=== PATIENT | male | born 1965 | race Caucasian/White ===

== ENCOUNTER → 2019-07-06 09:44 | Outpatient (CLI) | payer BC, SELFPAY ==
--- NOTE | 2019-07-06 09:52 | US_ITS ---
PROCEDURE: US ABDOMEN COMPLETE CLINICAL INDICATION: THADDEUS UPPER QUAD PAIN more prominent on right side COMPARISON: No exams were available for comparison FINDINGS: PANCREAS: Unremarkable. No obvious mass or abnormal fluid collection. No ductal dilatation LIVER: The liver appears grossly normal overall size, however there is a large area of somewhat irregular increased and heterogenic echogenicity right lobe measuring approximately 17.3 x 11.3 by 15.7 cm. This could be a large area of somewhat heterogenic fatty infiltration but a primary hepatic neoplasm is a consideration and suggest follow-up CT scan of the abdomen and pelvis without and with IV contrast and oral contrast for additional evaluation. RIGHT KIDNEY: The right kidney measures 11.1 x 6.1 by 7.6 cm and appears sonographically normal with no hydronephrosis. LEFT KIDNEY: Kidney measures 12.7 x 5.1 by 5.8 cm. There is a small area of increased echogenicity with acoustic shadowing beneath consistent with a renal calculus 6-8 mm in size. GALLBLADDER: The gallbladder is normal in size and a small amount of biliary sludge layering along the dependent wall but there are no definite gallstones. The common measures 0.4 cm. AORTA: No evidence of aneurysmal dilatation. SPLEEN: Unremarkable. Normal size and echogenicity ASCITES: None demonstrated. IMPRESSION: Probable hepatic mass versus unusual area of focal fatty infiltration and recommend follow-up CT scan abdomen pelvis without with IV contrast and oral contrast for additional evaluation Dictated by: Dr. Sebastián Sarabia MD 07/06/2019 11:[address] Sebastián Sarabia MD in [place] 07/06/2019 11:20
== END ==
PROVIDERS: PCP Internal Medicine; Visit Provider Internal Medicine
DX: R10.11 Right upper quadrant pain (principal); R10.12 Left upper quadrant pain
CPT/HCPCS: 76700

== ENCOUNTER → 2019-07-10 10:41 | Outpatient (CLI) | payer BC, SELFPAY ==
--- NOTE | 2019-07-10 10:46 | CT_ITS ---
PROCEDURE: CT ABDOMEN PELVIS WO/W CON CLINICAL INDICATION: RT HEPATIC LESION Abnormal ultrasound showing right upper quadrant mass COMPARISON: US ABDOMEN COMPLETE from 07/06/2019 TECHNIQUE: IV Contrast: 75ML OPTIRAY 350 Oral Contrast 450ml Redicat Axial images obtained with sagittal and coronal reformats. All CT scans at the facility use one or more dose reduction, viz: automated exposure control, ma/kV adjustment per patient size (including targeted exams where dose is matched to indication, i.e. head), or iterative reconstruction technique. FINDINGS: There are mild atelectatic or fibrotic changes in the left lung base. There is a large mostly fatty right suprarenal mass. This measures 18 cm cephalad caudad, up to 11 cm transverse, and 11 cm AP. This is mostly a fatty mass. This contains some minimal peripheral calcification and does not demonstrate any significant contrast enhancement. There is some soft tissue density within the lesion also not well-defined having a more hazy appearance in the upper aspect of the mass and also cyst in the mid aspect of the mass. This does not demonstrate any contrast enhancement. This does cause indentation upon the posterior aspect of the right hepatic lobe and causes depression of the right kidney. This is felt to be adrenal in origin and is consistent with a large angio myelolipoma. This lesion is felt to arise from the posterior aspect of the right adrenal gland The left kidney and left adrenal gland are unremarkable. No intestinal obstruction or free air. The right kidney is depressed inferiorly and somewhat malrotated with minimal ectasia of the right renal collecting system. Unremarkable appendix. No pelvic mass abnormal fluid collection or focal inflammatory change of the pelvis. No acute bony anomalies. Status post left hip replacement. Degenerative disc disease L4-5. IMPRESSION: Large mostly fatty containing right upper retroperitoneal mass as described above mostly containing fat but with some some nonenhancing soft tissue density with a small focus of calcification. This is consistent with a large adrenal myelolipoma. The differential diagnosis would include retroperitoneal liposarcoma, fat containing adrenal cortical carcinoma, or adrenal teratoma. Suggest surgical consult. Hemorrhage is more likely in and adrenal myelolipoma that is greater than 4 cm in size. Dictated by: Justin Garrison MD 07/11/2019 09:41 Electronically signed by Justin Garrison MD in [place] 07/11/2019 09:41
== END ==
PROVIDERS: PCP Internal Medicine; Visit Provider Internal Medicine
DX: K76.9 Liver disease, unspecified (principal)
CPT/HCPCS: 74178; Q9967

== ENCOUNTER → 2019-07-17 07:29 | Outpatient (CLI) | payer BC, SELFPAY ==
[2019-07-21 18:19] LABS: Renin Activity, Plasma 0.693 ng/mL/hr (0.167-5.380)
== END ==
PROVIDERS: Visit Provider Internal Medicine
DX: E27.9 Disorder of adrenal gland, unspecified (principal)
CPT/HCPCS: 36415; 82088; 82533; 84244

== ENCOUNTER → 2019-09-18 07:45 | Outpatient (CLI) | payer BC, SELFPAY ==
--- NOTE | 2019-09-18 07:47 | US_ITS ---
PROCEDURE: US ABDOMEN COMPLETE CLINICAL INDICATION: RUQ PAIN COMPARISON: US ABDOMEN COMPLETE from 07/06/2019 CT ABDOMEN PELVIS WO/W CON from 07/10/2019 FINDINGS: PANCREAS: Unremarkable. No obvious mass or abnormal fluid collection. No ductal dilatation LIVER: Fatty liver. No focal liver lesions evident. RIGHT KIDNEY: There is a large heterogeneous mass involving the right suprarenal region at 17 x 12 cm. This shows mixed areas of increased and decreased echogenicity corresponding to the fatty mass seen on the CT scan. This does not appear significantly changed in size compared to the previous ultrasound of 07/06/2019. The right kidney is displaced inferiorly. No hydronephrosis evident. LEFT KIDNEY: Small area of increased echogenicity noted in the lower pole left kidney consistent with a nonobstructing stone as noted on the previous CT scan. GALLBLADDER: No gallstones, gallbladder wall thickening, pericholecystic fluid, or biliary dilatation. Mild amount of gallbladder sludge noted. AORTA: No evidence of aneurysmal dilatation. SPLEEN: Unremarkable. Normal size and echogenicity ASCITES: None demonstrated. IMPRESSION: The no change right suprarenal mass as seen on the previous ultrasound and the CT scan of 07/10/2019 and may represent a large adrenal myelolipoma. Differential diagnosis would include retroperitoneal sarcoma as well as fat containing adrenal carcinoma or adrenal teratoma. Left nephrolithiasis. No gallstones, pericholecystic fluid, or biliary dilatation. The was a mild amount of gallbladder sludge noted. Dictated by: Justin Garrison MD 09/19/2019 11:21 Electronically signed by Justin Garrison MD in [place] 09/19/2019 11:22
== END ==
PROVIDERS: PCP Internal Medicine; Visit Provider Internal Medicine
DX: R10.11 Right upper quadrant pain (principal)
CPT/HCPCS: 76700

== ENCOUNTER 2020-04-02 22:39 | Observation (INO) | payer BC, SELFPAY ==
[2020-04-02 22:59] VITALS: BP 156/86; PULSE 80; RESP 16; TEMP 37.1; O2SAT 97; BMI 32.5
--- NOTE | 2020-04-02 23:06 | CT_ITS ---
PROCEDURE: CT ABDOMEN PELVIS W CON CLINICAL INDICATION: left lower back pain w/ fever Left flank pain with fever COMPARISON: CT ABDOMEN PELVIS WO/W CON from 07/10/2019 TECHNIQUE: IV Contrast: 75ML OPTIRAY 350 Oral Contrast none Axial images obtained with sagittal and coronal reformats. All CT scans at the facility use one or more dose reduction, viz: automated exposure control, ma/kV adjustment per patient size (including targeted exams where dose is matched to indication, i.e. head), or iterative reconstruction technique. FINDINGS: LOWER THORAX: There are mild atelectatic changes in the lung bases. ABDOMEN & PELVIS: There has been interval right adrenalectomy. Low-density areas present in the left lobe of the liver at 1.8 cm and may represent a hepatic cyst. The gallbladder, left adrenal gland, and pancreas have an unremarkable appearance. Borderline splenomegaly at 13 cm. There is a 10 by 5 mm calculus in the proximal to mid aspect of the right ureter at the L3-L4 level with mild to moderate left hydronephrosis and proximal hydroureter. There is minimal stranding of the left proximal periureteral fat. There is mild prominence of the right renal collecting system possibly due to patient's hydration status. Artifact is present from a left hip prosthesis. No intestinal obstruction or free air. Bowel gas pattern is nonspecific with nondistended fluid-filled loops of small bowel. No evidence of appendicitis. No evidence of diverticulitis. There is degenerative disc disease at L4-5 with endplate and facet hypertrophic change and bilateral foraminal narrowing. IMPRESSION: 1. 10 x 5 mm left mid to proximal ureteral stone with moderate left hydroureteronephrosis 2. Prior right adrenalectomy. 3. Borderline splenomegaly. 4. 2 cm hypodensity of the left lobe of the liver which may be due to small cyst Dictated by: Justin Garrison MD 04/03/2020 08:50 Electronically signed by Justin Garrison MD in [place] 04/03/2020 08:50
[2020-04-02 23:12] LABS: Microscopic, Urine URINE MICROSCOPIC (MICROSCOPIC)
[2020-04-02 23:13] LABS: Basophils % 0.2 % (0.1-2.0); Eosinophils # 0.2 K/mm3 (0.0-0.4); Eosinophils % 1.5 % (0.1-12.0); Hematocrit 44.1 % (42.0-52.0); Hemoglobin 15.8 g/dL (14.1-18.0); Lymphocytes # 1.4 K/mm3 (0.7-4.5); Lymphocytes % 13.1 % (10-50); Mean Corpuscular HGB Conc 35.8 g/dL (31.8-35.4); Mean Corpuscular Hemoglobin 31.1 pg (27.0-31.2); Mean Corpuscular Volume 86.8 fl (80-94); Monocytes # 0.7 K/mm3 (0.1-1.0); Monocytes % 6.7 % (1.7-9.3); Neutrophils # 8.2 K/mm3 (1.8-7.8); Neutrophils % 78.5 % (37.0-80.0); Platelet Count 238 K/mm3 (142-424); Red Blood Count 5.08 M/mm3 (4.60-6.20); Red Cell Distribution Width 13.8 % (11.5-17.5); White Blood Count 10.5 K/mm3 (4.8-10.8)
[2020-04-02 23:14] LABS: Appearance,Urine CLEAR (Clear); Bilirubin,Urine Negative (Negative); Blood, Urine 1+ (Negative); Color,Urine YELLOW (Yellow); Glucose,Urine (UA) Negative (Negative); Ketones,Urine Negative (Negative); Leukocyte Esterase,Urine Negative (Negative); Nitrate,Urine Negative (Negative); Protein,Urine Negative (Negative); Urobilinogen,Urine 0.2 EU/dl (0.2)
--- NOTE | 2020-04-02 23:15 | HMH.EDGENADL ---
ED Disposition Clinical Impression: Renal colic on left side Disposition: Admitted as Observation Condition on Discharge: Good Referrals: Lavon Brice [Primary Care Provider] - - Critical Care Critical Care Time: No Attestation: On 04/02/20, the high probability of a clinically significant, sudden or life threatening deterioration of the following system(s) required my full and direct attention, intervention and personal management. The time I documented below is in addition to time spent performing reported procedures but includes the following listed in this critical care notation. Medical Decision Making - Medical Records Medical records reviewed: Yes: I reviewed the patient's medical records. - Suhail Inquiry Pt receiving controlled substance: No Vital Signs: 04/02/20 22:59 Temperature 98.8 F Temperature Source Oral Pulse Rate [Right] 80 Respiratory Rate 16 Blood Pressure [Right Arm] 156/86 H Blood Pressure Mean [Right Arm] 109 Blood Pressure Source [Right Arm] Automatic Cuff Blood Pressure Position [Right Arm] Supine 02 Sat by Pulse Oximetry 97 Oxygen Delivery Method Room Air - Lab Data Lab results reviewed: Yes: I reviewed the patient's lab results. Lab Results 04/02/20 23:00: WBC 10.5, RBC 5.08, Hgb 15.8, Hct 44.1, MCV 86.8, MCH 31.1, MCHC 35.8 H, RDW 13.8, Plt Count 238, MPV 7.0 L, Neut % (Auto) 78.5, Lymph % (Auto) 13.1, [place] % (Auto) 6.7, Eos % (Auto) 1.5, Baso % (Auto) 0.2, Neut # (Auto) 8.2 H, Lymph # (Auto) 1.4, [place] # (Auto) 0.7, Eos # (Auto) 0.2, Baso # (Auto) 0.0, ESR 15 04/02/20 23:00: Sodium 138, Potassium 4.0, Chloride 98, Carbon Dioxide 28, Anion Gap 16.0 H, BUN 19, Creatinine 1.40 H, Estimated Creat Clear 99, Estimated GFR 53 L, Est GFR ( Amer) 64, Glucose 130 H, Calcium 9.8, Total Bilirubin 0.8, AST 31, ALT 23, Alkaline Phosphatase 79, C-Reactive Protein 14.2 H, Total Protein 7.8, Albumin 5.0, Globulin 2.8, Albumin/Globulin Ratio 1.8, Amylase 70, Lipase 48 04/02/20 23:07: Urine Color Yellow, Urine Appearance Clear, Urine pH 6.0, Ur Specific [place] 1.010, Urine Protein Negative, Urine Glucose (UA) Negative, Urine Ketones Negative, Urine Blood 1+, Urine Nitrate Negative, Urine Bilirubin Negative, Urine Urobilinogen 0.2, Ur Leukocyte Esterase Negative, Urine RBC 3-5, Urine WBC Occasional, Urine Bacteria Trace, Urine Mucus 1+ Result diagrams: 04/02/20 23:00 04/02/20 23:00 Orders (Tests/Meds): ED MEDICATIONS Generic Name Dose Route Start Last Admin Trade Name Freganesh PRN Reason Stop Dose Admin Sodium Chloride 1,000 mls @ 999 mls/hr 04/02/20 23:15 04/02/20 23:09 Sod Chlor 0.9% 1000ml Bag IV 04/03/20 00:15 999 mls/hr .Q1H1M ERVIN Administration Sodium Chloride 1,000 mls @ 999 mls/hr 04/02/20 23:45 04/02/20 23:41 Sod Chlor 0.9% 1000ml Bag IV 04/03/20 00:45 999 mls/hr .Q1H1M ERVIN Administration Ertapenem 1 gm/ Sodium 50 mls @ 100 mls/hr 04/03/20 00:30 Chloride IV 04/17/20 00:29 Q24H ERVIN Protocol Sodium Chloride 8 ml 04/02/20 23:06 Sodium Chloride 0.9% 10ml Vial IV 05/02/20 23:05 NEEDED PRN dilute pepcid Discontinued Medications Generic Name Dose Route Start Last Admin Trade Name Sravan PRN Reason Stop Dose Admin Famotidine 20 mg 04/02/20 23:06 04/02/20 23:11 Pepcid 20mg/2ml Vial IV 04/02/20 23:07 20 mg ONCE ONE Administration Ketorolac Tromethamine 30 mg 04/02/20 23:06 04/02/20 23:10 Toradol 30mg/Ml Vial IV 04/02/20 23:07 30 mg ONCE ONE Administration Metoclopramide HCl 10 mg 04/02/20 23:06 04/02/20 23:10 Reglan 10mg/2ml Vial IVP 04/02/20 23:07 10 mg ONCE ONE Administration Morphine Sulfate 4 mg 04/03/20 00:14 04/03/20 00:18 Morphine 4mg/Ml Syringe IV 04/03/20 00:15 4 mg ONCE ONE Administration Ondansetron HCl 4 mg 04/02/20 23:06 04/02/20 23:10 Zofran 4mg/2ml Vial IV 04/02/20 23:07 4 mg ONCE ONE Administration ORDERS Category Date Time Status CT abdo
[2020-04-02 23:18] LABS: Alanine Aminotransferase 23 U/L (12-78); Albumin/Globulin Ratio 1.8 (1.1-1.8); Alkaline Phosphatase 79 U/L (38-126); Amylase 70 U/L (30-110); Aspartate Amino Transferase 31 U/L (17-59); Bilirubin,Total 0.8 mg/dl (0.2-1.3); Blood Urea Nitrogen 19 mg/dl (9-20); Calcium 9.8 mg/dl (8.4-10.2); Carbon Dioxide 28 mmol/L (22.0-30.0); Chloride 98 mmol/L (98-107); Creatinine Clearance Estimated 99 mL/min (50-200); Estimated Glomerular Filt Rate 53 ml/min (>60); GFR (African American) 64 ML/MIN (>60); Globulin 2.8 g/dL (1.3-3.2); Glucose 130 mg/dl (74-100); Lipase 48 U/L (23-300); Sodium 138 mmol/L (136-145); Total Protein,Serum 7.8 g/dl (6.3-8.2)
[2020-04-02 23:23] LABS: C-Reactive Protein 14.2 mg/L (0-4)
[2020-04-02 23:32] LABS: Bacteria,Urine Trace /lpf; Mucus,Urine 1+ /lpf; WBC,Urine Occasional #/hpf (0-3)
[2020-04-02 23:40] VITALS: BP 116/71; PULSE 69; RESP 16; O2SAT 94
[2020-04-02 23:43] LABS: Erythrocyte Sedimentation Rate 15 mm/hr (0-20)
[2020-04-03] VITALS (9 sets, daily range): BP systolic 116–136; BP diastolic 68–75; PULSE 65–78; RESP 14–18; TEMP 36.6–37.1; O2SAT 92–98; BMI 32.3
--- NOTE | 2020-04-03 00:53 | PC.NURSE ---
report called to ALINA Stockton
--- NOTE | 2020-04-03 01:08 | PC.NURSE ---
patient up to floor via wheelchair.
--- NOTE | 2020-04-03 02:35 | PC.NURSE ---
Pt reports he has MAURA and uses a CPAP at night during sleep. Pt unable to retrieve his own cpap from home and refuses [facility] Bipap/Cpap version. New order from Dr. Jaquez for supplemental O2, pt placed on 2LPM O2 via NC, current sat 95% on room air. Pt states he has not slept without his CPAP in 5 yrs. Pt denies any SOA and dyspnea at this time, will continue to monitor.
--- NOTE | 2020-04-03 03:41 | PC.NURSE ---
Pt's room aie sat = 95% at rest.
[2020-04-03 05:50] LABS: Basophils % 0.1 % (0.1-2.0); Eosinophils # 0.1 K/mm3 (0.0-0.4); Eosinophils % 1.4 % (0.1-12.0); Hematocrit 41.8 % (42.0-52.0); Hemoglobin 14.5 g/dL (14.1-18.0); Lymphocytes # 1.5 K/mm3 (0.7-4.5); Lymphocytes % 15.9 % (10-50); Mean Corpuscular HGB Conc 34.6 g/dL (31.8-35.4); Mean Corpuscular Volume 89.7 fl (80-94); Monocytes # 0.6 K/mm3 (0.1-1.0); Monocytes % 6.1 % (1.7-9.3); Neutrophils # 7.3 K/mm3 (1.8-7.8); Neutrophils % 76.6 % (37.0-80.0); Platelet Count 212 K/mm3 (142-424); Red Blood Count 4.66 M/mm3 (4.60-6.20); Red Cell Distribution Width 13.6 % (11.5-17.5); White Blood Count 9.5 K/mm3 (4.8-10.8)
[2020-04-03 06:19] LABS: Chloride 104 mmol/L (98-107); Sodium 139 mmol/L (136-145)
[2020-04-03 06:20] LABS: Potassium 4.3 mmoL/L (3.5-5.1)
[2020-04-03 06:22] LABS: Blood Urea Nitrogen 16 mg/dl (9-20); Creatinine Clearance Estimated 107 mL/min (50-200); Estimated Glomerular Filt Rate 57 ml/min (>60); GFR (African American) 69 ML/MIN (>60)
[2020-04-03 06:23] LABS: Anion Gap 8.3 mEq/L (5-15); Carbon Dioxide 31 mmol/L (22.0-30.0); Glucose 100 mg/dl (74-100)
[2020-04-03 06:35] LABS: Calcium 8.2 mg/dl (8.4-10.2)
--- NOTE | 2020-04-03 07:41 | HMH.PHAVTE ---
[facility] Pharmacy VTE Monitoring - Patient Demographics Admission date: 04/03/20 Report Date: 04/03/20 Time: 07:41 Allergies/Adverse Reactions: Patient Allergies No Known Allergies Allergy (Unverified 10/04/17 14:55) Height: 1.91 m Weight: 117.934 kg Patient Problems: Current Active Problems Renal colic on left side (Acute) - VTE Risk Labs: VTE Related Lab Results Hgb 14.5 g/dL (14.1-18.0) 04/03/20 05:30 Hct 41.8 % (42.0-52.0) L 04/03/20 05:30 Plt Count 212 K/mm3 (142-424) 04/03/20 05:30 BUN 16 mg/dl (9-20) 04/03/20 05:30 Creatinine 1.30 mg/dl (0.66-1.25) H 04/03/20 05:30 Estimated Creat Clear 107 mL/min (50-200) 04/03/20 05:30 Was VTE Risk Assessment Performed: Yes VTE Score: 5 VTE Risk Level: Low Risk Clinical Trial Participant: No - Prophylaxis VTE Prophylaxis Ordered?: Yes Types of VTE Prophylaxis: TEDS Knee High
--- NOTE | 2020-04-03 08:42 | HMH.HP ---
*Admission Date: 04/03/20 *Chief complaint: left flank pain *History of present illness: 54-year-old gentleman with history of benign adrenal adenoma status post resection in September 2019, hypertension, and 4 to 5 days of worsening abdominal discomfort and left flank pain. He states over the weekend he had symptoms concerning for a slipped disc versus food poisoning versus UTI. Pain was initially in his back and so he saw his chiropractor earlier this week with no significant improvement after realignment. Has had intermittent chills and vomiting with persistent pain and gradual movement of pain from his back to his left upper flank. Performed a UA at home using a dipstick which was positive for leukoesterase and nitrites. Came to the ER due to persistent pain, nausea, failure of oral analgesics at home. In the ER he was found to have a slight LUIS, CT of the abdomen showed obstructing nephrolithiasis on the left side. Patient was admitted for fluid resuscitation, pain control, urology consult. This morning is pleasant on exam. States his pain waxes and wanes but responded quite well to therapy overnight. Is n.p.o. Awaiting urology. [facility] History I have reviewed the patient's past medical history: Yes Medical History: Reports:: Hypertension Denies:: Cancer, Diabetes Mellitus Type 1, Diabetes Mellitus Type 2 *Have you ever received a pneumonia vaccine?: No *Have you received a flu vaccine this season?: Yes (fall 2018) Laterality Cases: Left: Total Hip Replacement Other Surgeries: Yes: Other (open right adrenalectomy, hammer toe surg) Fractures: Yes - *Social History Educational Level: Completed College Smoking Status: Current every day smoker Tobacco Type: smokeless tobacco # Packs/Day (cigarettes): 1 Alcohol Intake: current Alcohol Intake Frequency:: a few times a month *Occupational Status:: employed Housing: house Household Members: spouse, children *Travel in the last 8 weeks: None Family Hx:: Cancer, Stroke Review of Systems - Review of Systems Review of systems:: pertinent systems reviewed and negative unless documented below (14 point review of systems performed, pertinent positives and negatives as per HPI) - *Neurologic Denies localized weakness, Denies headache(s) Meds Home Medications Medication Instructions Recorded Confirmed Type Amlodipine Besylate [Amlodipine 10 mg PO DAILY 04/03/20 04/03/20 History 10mg Tab] Losartan Potassium 100 mg PO HS 04/03/20 04/03/20 History Allergies Allergy/AdvReac Type Severity Reaction Status Date / Time No Known Allergies Allergy Unverified 10/04/17 14:55 Exam Vital signs and Labs for Last 24 Hours: Temp Pulse Resp BP Pulse Ox 98.2 F 65 16 116/68 96 04/03/20 07:29 04/03/20 07:29 04/03/20 07:29 04/03/20 07:29 04/03/20 07:29 Laboratory Results - last 24 hr 04/02/20 23:00: WBC 10.5, RBC 5.08, Hgb 15.8, Hct 44.1, MCV 86.8, MCH 31.1, MCHC 35.8 H, RDW 13.8, Plt Count 238, MPV 7.0 L, Neut % (Auto) 78.5, Lymph % (Auto) 13.1, [place] % (Auto) 6.7, Eos % (Auto) 1.5, Baso % (Auto) 0.2, Neut # (Auto) 8.2 H, Lymph # (Auto) 1.4, [place] # (Auto) 0.7, Eos # (Auto) 0.2, Baso # (Auto) 0.0, ESR 15 04/02/20 23:00: Sodium 138, Potassium 4.0, Chloride 98, Carbon Dioxide 28, Anion Gap 16.0 H, BUN 19, Creatinine 1.40 H, Estimated Creat Clear 99, Estimated GFR 53 L, Est GFR ( Amer) 64, Glucose 130 H, Calcium 9.8, Total Bilirubin 0.8, AST 31, ALT 23, Alkaline Phosphatase 79, C-Reactive Protein 14.2 H, Total Protein 7.8, Albumin 5.0, Globulin 2.8, Albumin/Globulin Ratio 1.8, Amylase 70, Lipase 48 04/02/20 23:07: Urine Color Yellow, Urine Appearance Clear, Urine pH 6.0, Ur Specific [place] 1.010, Urine Protein Negative, Urine Glucose (UA) Negative, Urine Ketones Negative, Urine Blood 1+, Urine Nitrate Negative, Urine Bilirubin Negative, Urine Urobilinogen 0.2, Ur Leukocyte Esterase Negative, Urine RBC 3-5, Urine WBC Occasional, Urine Bacteria Trace, Urine Mucus 1+ 04/03
--- NOTE | 2020-04-03 11:02 | HMH.PHAINT ---
MEDICATION RECONCILIATION COMPLETED ON PATIENT USING EXTERNAL FILL HISTORY FROM PHARMACY AND PATIENT INTERVIEW. -ERWIN FUENTES, BRISAD
--- NOTE | 2020-04-03 13:39 | PC.NURSE ---
Pt and are upset that Dr. Lubin has not consulted on his case today. Pt is debating on transferring his care to [facility] in [facility]. I called Dr. Lubin's office and his nurse reports that he will round by 2pm today. She also reports that called the office and she told her the same thing.
--- NOTE | 2020-04-03 14:29 | PC.NURSE ---
Dr. Lubin @ BS @ 1400 to consult with pt. Plans are for pt to have cystoscopy with left stent placement tomorrow morning. Pt will be NPO @ midnight. Can resume regular diet until then. Pt and are aware.
[2020-04-03 16:17] LABS: Coronavirus 19 IgG Antibody Negative (Negative); Coronavirus 19 IgM Antibody Negative (Negative)
--- NOTE | 2020-04-03 16:38 | HMH.CONS ---
*Admission Date: 04/03/20 *Reason for consult:: Left flank pain *History of present illness: Patient is a 54-year-old white male with acute onset of left flank pain last evening. He presented to the emergency room where his temperature was normal at 98.8. His white count was normal and his creatinine was slightly elevated at 1.4. He states associated nausea vomiting. CT scan showed a 10 x 7 left proximal ureteral stone with hydronephrosis. There is been interval removal of a large right adrenal mass. Patient has been relatively comfortable since his admission. He is on IV antibiotics. [facility] History Medical History: Reports:: Hypertension Denies:: Cancer, Diabetes Mellitus Type 1, Diabetes Mellitus Type 2 *Have you ever received a pneumonia vaccine?: No *Have you received a flu vaccine this season?: Yes (fall 2018) Laterality Cases: Left: Total Hip Replacement Other Surgeries: Yes: Other (open right adrenalectomy, hammer toe surg) Fractures: Yes - *Social History Educational Level: Completed College Smoking Status: Current every day smoker Tobacco Type: smokeless tobacco # Packs/Day (cigarettes): 1 Alcohol Intake: current Alcohol Intake Frequency:: a few times a month *Occupational Status:: employed Housing: house Household Members: spouse, children *Travel in the last 8 weeks: None Family Hx:: Cancer, Stroke Review of Systems - Review of Systems Review of systems:: pertinent systems reviewed and negative unless documented below - *Neurologic Denies localized weakness, Denies headache(s) Meds Home Medications Medication Instructions Recorded Confirmed Type Amlodipine Besylate [Amlodipine 10 mg PO DAILY 04/03/20 04/03/20 History 10mg Tab] Losartan Potassium 100 mg PO HS 04/03/20 04/03/20 History Allergies Allergy/AdvReac Type Severity Reaction Status Date / Time No Known Allergies Allergy Unverified 10/04/17 14:55 Exam Vital signs and Labs for Last 24 Hours: Temp Pulse Resp BP Pulse Ox 97.8 F 65 18 136/75 97 04/03/20 15:13 04/03/20 15:13 04/03/20 15:13 04/03/20 15:13 04/03/20 15:13 Laboratory Results - last 24 hr 04/02/20 23:00: WBC 10.5, RBC 5.08, Hgb 15.8, Hct 44.1, MCV 86.8, MCH 31.1, MCHC 35.8 H, RDW 13.8, Plt Count 238, MPV 7.0 L, Neut % (Auto) 78.5, Lymph % (Auto) 13.1, [place] % (Auto) 6.7, Eos % (Auto) 1.5, Baso % (Auto) 0.2, Neut # (Auto) 8.2 H, Lymph # (Auto) 1.4, [place] # (Auto) 0.7, Eos # (Auto) 0.2, Baso # (Auto) 0.0, ESR 15 04/02/20 23:00: Sodium 138, Potassium 4.0, Chloride 98, Carbon Dioxide 28, Anion Gap 16.0 H, BUN 19, Creatinine 1.40 H, Estimated Creat Clear 99, Estimated GFR 53 L, Est GFR ( Amer) 64, Glucose 130 H, Calcium 9.8, Total Bilirubin 0.8, AST 31, ALT 23, Alkaline Phosphatase 79, C-Reactive Protein 14.2 H, Total Protein 7.8, Albumin 5.0, Globulin 2.8, Albumin/Globulin Ratio 1.8, Amylase 70, Lipase 48 04/02/20 23:07: Urine Color Yellow, Urine Appearance Clear, Urine pH 6.0, Ur Specific [place] 1.010, Urine Protein Negative, Urine Glucose (UA) Negative, Urine Ketones Negative, Urine Blood 1+, Urine Nitrate Negative, Urine Bilirubin Negative, Urine Urobilinogen 0.2, Ur Leukocyte Esterase Negative, Urine RBC 3-5, Urine WBC Occasional, Urine Bacteria Trace, Urine Mucus 1+ 04/03/20 05:30: WBC 9.5, RBC 4.66, Hgb 14.5, Hct 41.8 L, MCV 89.7, MCH 31.0, MCHC 34.6, RDW 13.6, Plt Count 212, MPV 7.0 L, Neut % (Auto) 76.6, Lymph % (Auto) 15.9, [place] % (Auto) 6.1, Eos % (Auto) 1.4, Baso % (Auto) 0.1, Neut # (Auto) 7.3, Lymph # (Auto) 1.5, [place] # (Auto) 0.6, Eos # (Auto) 0.1, Baso # (Auto) 0.0 04/03/20 05:30: Sodium 139, Potassium 4.3, Chloride 104, Carbon Dioxide 31 H, Anion Gap 8.3, BUN 16, Creatinine 1.30 H, Estimated Creat Clear 107, Estimated GFR 57 L, Est GFR ( Amer) 69, Glucose 100 D, Calcium 8.2 L D 04/03/20 05:30: SARS-CoV-2 IgG Ab (Rapid) Negative, SARS-CoV-2 IgM Ab (Rapid) Negative I & O for Last 24 hours: Intake & Output 03/31/20 04/01/20 04/02/20
--- NOTE | 2020-04-03 18:31 | PC.NURSE ---
Dr. Lubin consulted today. Pt will undergo a cystoscopy with left stent placement tomorrow. Pt is on a reg diet but will be NPO tomorrow. No other significant events this shift. VSS. A&O. Morphine 4mg IV controls pain.
--- NOTE | 2020-04-03 20:45 | PC.NURSE ---
Pt's room air O2 sat at rest = 92%.
[2020-04-04] VITALS (18 sets, daily range): BP systolic 103–145; BP diastolic 54–89; PULSE 57–81; RESP 14–20; TEMP 36.1–37; O2SAT 92–98; BMI 32.3
--- NOTE | 2020-04-04 04:43 | PC.NURSE ---
No changes over night. Pt c/o pain to flank x1 and medicated per MAR w/ relief stated. Pt is independent w/ ADL's and ambulates often in room. Pt voiding w/o reported of difficulty. Family present at bedside during the night. Pt has remained NPO since midnight.
[2020-04-04 06:41] LABS: Basophils % 0.2 % (0.1-2.0); Eosinophils # 0.1 K/mm3 (0.0-0.4); Eosinophils % 1.4 % (0.1-12.0); Hematocrit 38.5 % (42.0-52.0); Hemoglobin 13.5 g/dL (14.1-18.0); Lymphocytes # 1.6 K/mm3 (0.7-4.5); Lymphocytes % 21.5 % (10-50); Mean Corpuscular HGB Conc 35.1 g/dL (31.8-35.4); Mean Corpuscular Hemoglobin 31.1 pg (27.0-31.2); Mean Corpuscular Volume 88.6 fl (80-94); Mean Platelet Volume 7.4 fl (7.4-10.4); Monocytes # 0.4 K/mm3 (0.1-1.0); Neutrophils # 5.2 K/mm3 (1.8-7.8); Neutrophils % 70.9 % (37.0-80.0); Platelet Count 198 K/mm3 (142-424); Red Blood Count 4.35 M/mm3 (4.60-6.20); Red Cell Distribution Width 13.7 % (11.5-17.5); White Blood Count 7.4 K/mm3 (4.8-10.8)
[2020-04-04 06:54] LABS: Chloride 105 mmol/L (98-107); Sodium 137 mmol/L (136-145)
[2020-04-04 06:55] LABS: Potassium 3.9 mmoL/L (3.5-5.1)
[2020-04-04 06:58] LABS: Anion Gap 7.9 mEq/L (5-15); Blood Urea Nitrogen 13 mg/dl (9-20); Carbon Dioxide 28 mmol/L (22.0-30.0); Creatinine Clearance Estimated 107 mL/min (50-200); Estimated Glomerular Filt Rate 57 ml/min (>60); GFR (African American) 69 ML/MIN (>60); Glucose 93 mg/dl (74-100)
--- NOTE | 2020-04-04 08:55 | HMH.DCSUM ---
General - General Admission date:: 04/03/20 Discharge date: 04/04/20 HPI HPI: 54-year-old gentleman with history of benign adrenal adenoma status post resection in September 2019, hypertension, and 4 to 5 days of worsening abdominal discomfort and left flank pain. He states over the weekend he had symptoms concerning for a slipped disc versus food poisoning versus UTI. Pain was initially in his back and so he saw his chiropractor earlier this week with no significant improvement after realignment. Has had intermittent chills and vomiting with persistent pain and gradual movement of pain from his back to his left upper flank. Performed a UA at home using a dipstick which was positive for leukoesterase and nitrites. Came to the ER due to persistent pain, nausea, failure of oral analgesics at home. In the ER he was found to have a slight LUIS, CT of the abdomen showed obstructing nephrolithiasis on the left side. Patient was admitted for fluid resuscitation, pain control, urology consult. This morning is pleasant on exam. States his pain waxes and wanes but responded quite well to therapy overnight. Is n.p.o. Awaiting urology. Hospital Course Hospital Course: Patient was admitted due to flank pain and finding of obstructing nephrolithiasis on the left side. Initiated on empiric antibiotics due to concern for infection/pyelonephritis. Also initiated on IV fluids and pain control. Patient remained clinically stable with good tolerance of medical therapy. Did not have any passage of stone by the time urology consulted on him. Decision was made to keep patient admitted and pursue with stent of left ureter. Cystoscopy performed with placement of stent on 04/04/2020. Patient tolerated procedure well. Stone was pushed back up into the renal pelvis with plan for lithotripsy at a later date. Stent placed with good flow of urine. Cloudy urine obtained for culture during procedure. Culture pending at time of discharge. Plan to resume home medications for blood pressure. Will treat with empiric course of Levaquin to complete approximately 7 days of antibiotic therapy for UTI/uncomplicated Pyelo. Patient symptoms resolved. Medically stable for discharge home. Follow-up primary care within the next week. Plan to follow-up with urology within the next month. Plan for staged treatment with lithotripsy in the coming weeks. Objective Vital signs: Temp Pulse Resp BP Pulse Ox 98.1 F 57 L 16 119/69 96 04/04/20 08:00 04/04/20 08:00 04/04/20 08:00 04/04/20 08:00 04/04/20 08:00 Narrative: - Constitutional no acute distress, obese - *Routine HEENT Exam Head: Present: normocephalic Eye: Present: EOMI, PERRL ENT: Present: mucous membranes moist - *Routine Neck Exam Present: supple. Absent: lymphadenopathy - *Routine Respiratory Exam Present: CTA bilaterally - *Routine Cardiovascular Exam Present: RRR - *Routine Abdominal Exam Present: soft, normoactive bowel sounds; improvement in Tenderness to palpation of the anterior abdomen. Positive mild CVA tenderness on the left side - *Routine Extremities Exam Absent: cyanosis, clubbing, edema - *Routine Skin Exam Present: warm. Absent: rash - *Routine Neurological Exam Present: alert, oriented X3 Results Labs on day of discharge: Labs from last 24 hours 04/04/20 04/04/20 04/03/20 06:03 06:03 05:30 WBC 7.4 RBC 4.35 L Hgb 13.5 L Hct 38.5 L MCV 88.6 MCH 31.1 MCHC 35.1 RDW 13.7 Plt Count 198 MPV 7.4 Neut % (Auto) 70.9 Lymph % (Auto) 21.5 [place] % (Auto) 6.0 Eos % (Auto) 1.4 Baso % (Auto) 0.2 Neut # (Auto) 5.2 Lymph # (Auto) 1.6 [place] # (Auto) 0.4 Eos # (Auto) 0.1 Baso # (Auto) 0.0 Sodium 137 Potassium 3.9 Chloride 105 Carbon Dioxide 28 Anion Gap 7.9 BUN 13 Creatinine 1.30 H Estimated Creat Clear 107 Estimated GFR 57 L Est GFR (Af
--- NOTE | 2020-04-04 09:42 | PC.NURSE ---
PT DOWN FOR CYSTOSCOPY AT THIS TIME.
--- NOTE | 2020-04-04 11:08 | HMH.ANESCL ---
[facility] Anesthesia Checklist - Patient Identification Patient Identification: Arm Band - Structural Data Admitted From: Home Planned Operative Procedure/s: cystoscopy with left ureteral stent placement Consent for Planned Operative Procedure(s) Verified: Yes Verified Documents: Surgical Consent, History and Physical - NPO Status Verified Time NPO: 00:00 - Additional verifications Anesthesia Reactions: No - Airway Assessment C-Spine Mobility Assessed: Yes (mp2) TMJ Mobility Assessed: Yes Dentition: Good Dentition - Anesthesia Plan Anesthesia Risk discussed: Yes Anesthesia Plan: Verified ASA Class: II Anesthesia Type: General [facility] History I have reviewed the patient's past medical history: Yes Medical History: Reports:: Hypertension Denies:: Cancer, Diabetes Mellitus Type 1, Diabetes Mellitus Type 2 *Have you ever received a pneumonia vaccine?: No *Have you received a flu vaccine this season?: Yes (fall 2018) Other Medical History: Reports: Other (MAURA-cpap hs) Anesthesia experience/problems:: nac Laterality Cases: Left: Total Hip Replacement Other Surgeries: Yes: Other (open right adrenalectomy, hammer toe surg) Fractures: Yes - *Social History Educational Level: Completed College Smoking Status: Current every day smoker Tobacco Type: smokeless tobacco # Packs/Day (cigarettes): 1 Alcohol Intake: current Alcohol Intake Frequency:: a few times a month Substance Use Type: denies use *Occupational Status:: employed Housing: house Household Members: spouse, children *Travel in the last 8 weeks: None Family Hx:: Cancer, Stroke
--- NOTE | 2020-04-04 11:25 | FL_ITS ---
PROCEDURE: FL CYSTOGRAM NON-VOIDING CLINICAL INDICATION: LEFT URETERSCOPY IN OR WITH STENT PLACEMENT COMPARISON: CT ABDOMEN PELVIS W CON from 04/02/2020 FINDINGS: Fluoroscopy time: 2 minutes and 12 seconds Two images are submitted showing a left ureteral stent in place with the proximal aspect overlying the left upper quadrant and distal aspect overlying the left pelvic region. IMPRESSION: Status post left ureteral stent placement with fluoro guidance Dictated by: Justin Garrison MD 04/04/2020 16:13 Electronically signed by Justin Garrison MD in [place] 04/04/2020 16:13
--- NOTE | 2020-04-04 11:28 | HMH.ANESI ---
[facility] Anesthesia Record Part I Intake, IV Amount: 700 Estimated blood loss (mL): 0 Urine output (mL): 0 Blood Pressure: 106/68 SaO2: 96 Pulse Rate: 61 Respiratory Rate: 16 Temperature: 97 F Patient is:: Drowsy, Stable Stable to PACU at:: 11:25
--- NOTE | 2020-04-04 12:12 | PC.NURSE ---
Received report from ALINA Rosas
--- NOTE | 2020-04-04 13:18 | HMH.OPNOTE ---
Date of procedure: 04/04/20 Pre-op Diagnosis:: Left proximal ureteral stone, 10 x 7 mm Post-op Diagnosis:: Same Procedure performed:: Cystoscopy with stone manipulation and left stent placement Surgeon:: Juanito Lubin MD BRAILLE TRANSLATOR:: Joey Lorenzo Anesthesia: GETA Estimated blood loss (mL): 0 Clinical Note:: 54-year-old white male with a 7 x 10 mm left proximal ureteral stone. He presents for urologic management. Operative findings:: 10 x 7 mm stone in the proximal left ureter. Operative note:: Patient taken to the operating room after informed consent was obtained. Was placed on the operating table in the supine position and general anesthesia administered. He had been on preoperative IV antibiotics. Sequential compression devices placed. He was then placed into the dorsal lithotomy position and prepped draped in the standard surgical fashion. 22 Sebastian passed into the urethra and into the bladder without difficulty. The bladder was surveyed without abnormalities. Left ureteral orifice was cannulated with a 5 Estonian ureteral catheter and passed up to the proximal left ureteral stone under fluoroscopy. We were able to manipulate the ureteral stone back into the kidney and that fell into the left lower pole. We then passed the guidewire through the ureteral catheter and remove the ureteral catheter and placed a 6 x 26 Estonian stent over the guidewire and under fluoroscopy the guidewire was removed and a good curl was noted proximally and distally. The string was left on for later removal. Patient tolerated procedure well. Some cloudy looking urine was noted to be coming from the ureter after stent placement and it was sent off for culture. Patient discharged to the recovery room and will go back to the floor. We will send him home with some oral antibiotics and get him set up for left ESWL. Condition: stable Disposition: PACU Specimens:: None Complications:: None
--- NOTE | 2020-04-05 17:26 | HMH.ANESII ---
[facility] Anesthesia Record Part II Discharge Time: 12:23 Destination: Medical Surgical Department PACU nurse assessment reviewed?: Yes Patient Condition:: Good Anesthesia Complications:: None Swallowing reflex intact?: Yes Cyanosis?: No Blood Pressure: 111/75 Pulse Rate: 59 Temperature: 98.3 F Mental Status: Alert & Oriented Pain level:: 5 Nausea and/or vomitting:: None Intake, IV Amount: 0
[2020-04-05 17:35] VITALS: BP 111/75; PULSE 59; TEMP 36.8
== END 2020-04-04 14:40 | disposition home or self-care (01) ==
LOC: ER 22:46 → 2ND 04-03 00:39
PROVIDERS: Internal Medicine Adolescent Medicine; Urology; Admitting Provider Emergency Medicine; Emergency Provider Emergency Medicine; PCP Internal Medicine; Visit Provider Internal Medicine Adolescent Medicine
PROC: (CPT 52352; principal; 2020-04-04 10:00)
DX: N13.6 Pyonephrosis (principal); N17.9 Acute kidney failure, unspecified; Z72.0 Tobacco use; I10 Essential (primary) hypertension; Z86.018 Personal history of other benign neoplasm
CPT/HCPCS: 52352; 52332; 36415; 74177; 74430; 80048; 80053; 81001; 82150; 83690; 85025; 85651; 86140; 86328; 87086; 94761; 96365; 96366; 96367; 96375; 99284; C2617; G0378; J1335; J2405; Q9967

== ENCOUNTER 2020-04-15 21:09 | Inpatient (IN) | payer BC, SELFPAY ==
[2020-04-15 21:18] LABS: Microscopic, Urine URINE MICROSCOPIC (MICROSCOPIC)
[2020-04-15 21:24] VITALS: BP 136/88; PULSE 111; RESP 18; TEMP 39.3; O2SAT 96; BMI 31.0
[2020-04-15 21:34] LABS: Appearance,Urine CLEAR (Clear); Bilirubin,Urine Negative (Negative); Blood, Urine TRACE-I (Negative); Color,Urine YELLOW (Yellow); Glucose,Urine (UA) Negative (Negative); Ketones,Urine Negative (Negative); Leukocyte Esterase,Urine 1+ (Negative); Nitrate,Urine Negative (Negative); PH,Urine 7.5 (5.0-8.5); Protein,Urine Negative (Negative); Urobilinogen,Urine 0.2 EU/dl (0.2)
--- NOTE | 2020-04-15 21:45 | XR_ITS ---
PROCEDURE: XR CHEST 2V CLINICAL HISTORY: fever COMPARISON: No exams were available for comparison FINDINGS: The cardiomediastinal silhouette and pulmonary vascularity are within normal limits. The lungs are clear without infiltrates, suspicious nodules, or pleural effusions. No acute bony abnormalities. IMPRESSION: No acute findings. Dictated by: Justin Garrison MD 04/16/2020 07:53 Electronically signed by Justin Garrison MD in [place] 04/16/2020 07:53
[2020-04-15 21:46] VITALS: BP 129/83; PULSE 107; RESP 18; O2SAT 97
[2020-04-15 22:00] LABS: Bacteria,Urine Trace /lpf; Squamous Epithelial Cell,Urine Occasional #/hpf (0-5)
[2020-04-15 22:08] LABS: Basophils % 0.1 % (0.1-2.0); Eosinophils # 0.1 K/mm3 (0.0-0.4); Eosinophils % 0.7 % (0.1-12.0); Hematocrit 42.7 % (42.0-52.0); Hemoglobin 14.7 g/dL (14.1-18.0); Lymphocytes # 0.6 K/mm3 (0.7-4.5); Lymphocytes % 5.1 % (10-50); Mean Corpuscular HGB Conc 34.5 g/dL (31.8-35.4); Mean Corpuscular Hemoglobin 30.6 pg (27.0-31.2); Mean Corpuscular Volume 88.7 fl (80-94); Mean Platelet Volume 6.9 fl (7.4-10.4); Monocytes # 0.6 K/mm3 (0.1-1.0); Monocytes % 4.7 % (1.7-9.3); Neutrophils # 11.2 K/mm3 (1.8-7.8); Neutrophils % 89.4 % (37.0-80.0); Platelet Count 234 K/mm3 (142-424); Red Blood Count 4.82 M/mm3 (4.60-6.20); Red Cell Distribution Width 13.8 % (11.5-17.5); White Blood Count 12.6 K/mm3 (4.8-10.8)
[2020-04-15 22:12] LABS: Chloride 105 mmol/L (98-107); Potassium 3.8 mmoL/L (3.5-5.1); Sodium 138 mmol/L (136-145)
[2020-04-15 22:14] LABS: MANUAL DIFFERENTIAL MANUAL DIFFERENTIAL (MANUAL DIFF)
[2020-04-15 22:15] LABS: Alanine Aminotransferase 29 U/L (12-78); Albumin Level 3.9 g/dl (3.5-5.0); Albumin/Globulin Ratio 1.6 (1.1-1.8); Alkaline Phosphatase 67 U/L (38-126); Anion Gap 9.8 mEq/L (5-15); Aspartate Amino Transferase 25 U/L (17-59); Bilirubin,Total 0.6 mg/dl (0.2-1.3); Blood Urea Nitrogen 10 mg/dl (9-20); Carbon Dioxide 27 mmol/L (22.0-30.0); Creatinine Clearance Estimated 137 mL/min (50-200); Estimated Glomerular Filt Rate 78 ml/min (>60); GFR (African American) 94 ML/MIN (>60); Globulin 2.4 g/dL (1.3-3.2); Total Protein,Serum 6.3 g/dl (6.3-8.2)
[2020-04-15 22:16] LABS: Glucose 124 mg/dl (74-100); Lactic Acid 1.8 mmol/L (0.7-2.1)
[2020-04-15 22:21] LABS: C-Reactive Protein 4.7 mg/L (0-4)
--- NOTE | 2020-04-15 22:21 | HMH.EDFEV ---
ED Disposition Clinical Impression: Febrile illness, acute, SIRS (systemic inflammatory response syndrome), Renal colic on left side Disposition: Admitted as Observation Condition on Discharge: Good - Critical Care Critical Care Time: No Attestation: On 04/15/20, the high probability of a clinically significant, sudden or life threatening deterioration of the following system(s) required my full and direct attention, intervention and personal management. The time I documented below is in addition to time spent performing reported procedures but includes the following listed in this critical care notation. Medical Decision Making - Medical Records Medical records reviewed: Yes: I reviewed the patient's medical records. - Suhail Inquiry Pt receiving controlled substance: No Vital Signs: 04/15/20 21:24 04/15/20 21:46 04/15/20 22:41 Temperature 102.8 F H Temperature Source Oral Pulse Rate [Right] 111 H 107 H 81 Respiratory Rate 18 18 18 Blood Pressure [Right Arm] 136/88 129/83 111/51 L Blood Pressure Mean [Right Arm] 104 98 71 Blood Pressure Source [Right Arm] Automatic Cuff Blood Pressure Position [Right Arm] Supine 02 Sat by Pulse Oximetry 96 97 99 Oxygen Delivery Method Room Air Room Air Room Air 04/15/20 23:04 Temperature Temperature Source Pulse Rate [Right] 101 H Respiratory Rate 18 Blood Pressure [Right Arm] 119/67 Blood Pressure Mean [Right Arm] 84 Blood Pressure Source [Right Arm] Blood Pressure Position [Right Arm] 02 Sat by Pulse Oximetry 93 L Oxygen Delivery Method Room Air - Lab Data Lab results reviewed: Yes: I reviewed the patient's lab results. Lab Results 04/15/20 21:16: Urine Color Yellow, Urine Appearance Clear, Urine pH 7.5, Ur Specific [place] 1.010, Urine Protein Negative, Urine Glucose (UA) Negative, Urine Ketones Negative, Urine Blood Trace-i, Urine Nitrate Negative, Urine Bilirubin Negative, Urine Urobilinogen 0.2, Ur Leukocyte Esterase 1+ A, Urine WBC 3-5, Ur Squamous Epith Cells Occasional, Urine Bacteria Trace 04/15/20 21:58: WBC 12.6 H, RBC 4.82, Hgb 14.7, Hct 42.7, MCV 88.7, MCH 30.6, MCHC 34.5, RDW 13.8, Plt Count 234, MPV 6.9 L, Neut % (Auto) 89.4 H, Lymph % (Auto) 5.1 L, [place] % (Auto) 4.7, Eos % (Auto) 0.7, Baso % (Auto) 0.1, Neut # (Auto) 11.2 H, Lymph # (Auto) 0.6 L, [place] # (Auto) 0.6, Eos # (Auto) 0.1, Baso # (Auto) 0.0, Total Counted 100, Neutrophils % (Manual) 91 H, Lymphocytes % (Manual) 5 L, Monocytes % (Manual) 4, Platelet Estimate Normal, RBC Morphology Normal, ESR 6 04/15/20 21:58: Sodium 138, Potassium 3.8, Chloride 105, Carbon Dioxide 27, Anion Gap 9.8, BUN 10, Creatinine 1.00, Estimated Creat Clear 137, Estimated GFR 78, Est GFR ( Amer) 94, Glucose 124 H, Calcium 9.0, Total Bilirubin 0.6, AST 25, ALT 29, Alkaline Phosphatase 67, C-Reactive Protein 4.7 H, Total Protein 6.3, Albumin 3.9, Globulin 2.4, Albumin/Globulin Ratio 1.6 04/15/20 21:58: Lactate 1.8 Result diagrams: 04/15/20 21:58 04/15/20 21:58 Orders (Tests/Meds): ED MEDICATIONS Generic Name Dose Route Start Last Admin Trade Name Freq PRN Reason Stop Dose Admin Sodium Chloride 1,000 mls @ 999 mls/hr 04/15/20 21:45 04/15/20 22:12 Sod Chlor 0.9% 1000ml Bag IV 04/15/20 22:45 999 mls/hr .Q1H1M ERVIN Administration Ertapenem 1 gm/ Sodium 50 mls @ 100 mls/hr 04/15/20 23:15 04/15/20 23:08 Chloride IV 04/29/20 23:14 100 mls/hr Q24H ERVIN Administration Protocol Discontinued Medications Generic Name Dose Route Start Last Admin Trade Name Freq PRN Reason Stop Dose Admin Ibuprofen 800 mg 04/15/20 22:00 04/15/20 22:11 Motrin 400mg Tablet PO 04/15/20 22:01 800 mg ONCE ONE Administration Ketorolac Tromethamine 30 mg 04/15/20 22:09 04/15/20 22:11 Toradol 30mg/Ml Vial IV 04/15/20 22:10 30 mg ONCE ONE Administration ORDERS Category Date Time Status XR chest 2V Stat Exams 04/15/20 21:45 Taken Blood Culture Stat Micro 04/15/20 21:58
[2020-04-15 22:41] VITALS: BP 111/51; PULSE 81; RESP 18; O2SAT 99
[2020-04-15 23:04] VITALS: BP 119/67; PULSE 101; RESP 18; O2SAT 93
[2020-04-15 23:09] LABS: Lymphocytes % 5 % (10-50); Monocytes % 4 % (2-9); Neutrophils % 91 % (42-76); Platelet Estimate Normal; RBC Morphology Normal; Total Cells Counted 100
[2020-04-15 23:10] LABS: Erythrocyte Sedimentation Rate 6 mm/hr (0-20)
[2020-04-16] VITALS (13 sets, daily range): BP systolic 121–144; BP diastolic 67–82; PULSE 94–105; RESP 16–20; TEMP 36.8–39.6; O2SAT 94–97; BMI 31.3
--- NOTE | 2020-04-16 00:33 | PC.NURSE ---
PT ARRIVED TO THE FLOOR VIA W/C FROM ED AT 0033.
[2020-04-16 06:59] LABS: Chloride 109 mmol/L (98-107)
[2020-04-16 07:00] LABS: Potassium 3.5 mmoL/L (3.5-5.1); Sodium 138 mmol/L (136-145)
[2020-04-16 07:02] LABS: Blood Urea Nitrogen 11 mg/dl (9-20); Creatinine Clearance Estimated 153 mL/min (50-200); Estimated Glomerular Filt Rate 88 ml/min (>60); GFR (African American) 106 ML/MIN (>60)
[2020-04-16 07:03] LABS: Anion Gap 7.5 mEq/L (5-15); Calcium 8.5 mg/dl (8.4-10.2); Carbon Dioxide 25 mmol/L (22.0-30.0); Glucose 110 mg/dl (74-100)
[2020-04-16 07:08] LABS: Basophils % 0.1 % (0.1-2.0); Eosinophils % 0.1 % (0.1-12.0); Hematocrit 39.3 % (42.0-52.0); Hemoglobin 13.6 g/dL (14.1-18.0); Lymphocytes # 0.5 K/mm3 (0.7-4.5); Lymphocytes % 3.5 % (10-50); Mean Corpuscular HGB Conc 34.5 g/dL (31.8-35.4); Mean Corpuscular Hemoglobin 31.1 pg (27.0-31.2); Mean Corpuscular Volume 90.1 fl (80-94); Mean Platelet Volume 6.9 fl (7.4-10.4); Monocytes # 0.6 K/mm3 (0.1-1.0); Monocytes % 3.9 % (1.7-9.3); Neutrophils # 12.9 K/mm3 (1.8-7.8); Neutrophils % 92.4 % (37.0-80.0); Platelet Count 188 K/mm3 (142-424); Red Blood Count 4.36 M/mm3 (4.60-6.20); Red Cell Distribution Width 13.8 % (11.5-17.5)
[2020-04-16 07:12] LABS: MANUAL DIFFERENTIAL MANUAL DIFFERENTIAL (MANUAL DIFF)
--- NOTE | 2020-04-16 07:23 | P.CONPHA_ITS ---
[facility] Pharmacy VTE Monitoring - Patient Demographics Admission date: 04/16/20 Report Date: 04/16/20 Time: 07:23 Allergies/Adverse Reactions: Patient Allergies No Known Allergies Allergy (Unverified 10/04/17 14:55) Height: 1.93 m Weight: 116.573 kg Patient Problems: Current Active Problems Renal colic on left side (Acute) Febrile illness, acute (Acute) SIRS (systemic inflammatory response syndrome) (Acute) - VTE Risk Labs: VTE Related Lab Results Hgb 13.6 g/dL (14.1-18.0) L 04/16/20 06:08 Hct 39.3 % (42.0-52.0) L 04/16/20 06:08 Plt Count 188 K/mm3 (142-424) 04/16/20 06:08 BUN 11 mg/dl (9-20) 04/16/20 06:08 Creatinine 0.90 mg/dl (0.66-1.25) 04/16/20 06:08 Estimated Creat Clear 153 mL/min (50-200) 04/16/20 06:08 VTE Score: 3 Clinical Trial Participant: No - Prophylaxis VTE Prophylaxis Ordered?: Yes Types of VTE Prophylaxis: TEDS Knee High
--- NOTE | 2020-04-16 08:06 | PC.NURSE ---
A&OX4. PT TOLERATING RA WELL T/O SHIFT. PT UP INDEPENDENTLY IN ROOM. PT HAS HAD NO C/O PAIN. PT HAS ONLY C/O FEELING CHILLED AND HAVING ACHES. ADMINISTERED TYLENOL AND IBUPROFEN THIS SHIFT PER DEC. PT HAS SLEPT T/O MAJORITY OF SHIFT. VSS T/O SHIFT.
--- NOTE | 2020-04-16 08:40 | HMH.HP ---
*Admission Date: 04/16/20 *Chief complaint: Acute febrile illness *History of present illness: 54-year-old white male with recent history of nephrolithiasis, with stent placement who was discharged approximately 10 days ago from the hospital with stent in place with plans for lithotripsy as an outpatient. He received 4 days of Levaquin and then this medication was discontinued. He has done well until the last 24 hours when he began to have flulike symptoms, shaking chills. He did not notice any change in his urine character but has chronic urgency and frequency based on the presence of the stent in the ureter. Came to the emergency department, found to have an abnormal urinalysis, and admitted for IV antibiotics, urology consultation given his high risk of recurrent UTI given foreign body in the urinary tract. Patient denies respiratory symptoms. [facility] History I have reviewed the patient's past medical history: Yes Medical History: Reports:: Hypertension Denies:: Cancer, Diabetes Mellitus Type 1, Diabetes Mellitus Type 2 *Have you ever received a pneumonia vaccine?: No *Have you received a flu vaccine this season?: Yes Other Medical History: Reports: Other (MAURA-cpap hs) Laterality Cases: Left: Total Hip Replacement Other Surgeries: Yes: Other (open right adrenalectomy, hammer toe surg) Fractures: Yes - *Social History Educational Level: Completed College Smoking Status: Current every day smoker Tobacco Type: smokeless tobacco # Packs/Day (cigarettes): 0 Alcohol Intake: never Alcohol Intake Frequency:: a few times a month Substance Use Type: denies use *Occupational Status:: employed Housing: house Household Members: spouse *Travel in the last 8 weeks: None Family Hx:: Cancer, Stroke Review of Systems - Review of Systems Review of systems:: pertinent systems reviewed and negative unless documented below - *Neurologic Denies headache(s), Denies loss of vision Meds Home Medications Medication Instructions Recorded Confirmed Type Losartan Potassium 100 mg PO HS 04/03/20 04/16/20 History Amlodipine Besylate [Amlodipine 5 mg PO DAILY 04/16/20 04/16/20 History 5mg tab] Zolpidem Tartrate 5 - 10 mg PO HSP PRN 04/16/20 04/16/20 History Allergies Allergy/AdvReac Type Severity Reaction Status Date / Time No Known Allergies Allergy Unverified 10/04/17 14:55 Exam Vital signs and Labs for Last 24 Hours: Temp Pulse Resp BP Pulse Ox 100.4 F H 99 H 18 132/72 97 04/16/20 05:26 04/16/20 04:00 04/16/20 04:00 04/16/20 04:00 04/16/20 04:00 Laboratory Results - last 24 hr 04/15/20 21:16: Urine Color Yellow, Urine Appearance Clear, Urine pH 7.5, Ur Specific [place] 1.010, Urine Protein Negative, Urine Glucose (UA) Negative, Urine Ketones Negative, Urine Blood Trace-i, Urine Nitrate Negative, Urine Bilirubin Negative, Urine Urobilinogen 0.2, Ur Leukocyte Esterase 1+ A, Urine WBC 3-5, Ur Squamous Epith Cells Occasional, Urine Bacteria Trace 04/15/20 21:58: WBC 12.6 H, RBC 4.82, Hgb 14.7, Hct 42.7, MCV 88.7, MCH 30.6, MCHC 34.5, RDW 13.8, Plt Count 234, MPV 6.9 L, Neut % (Auto) 89.4 H, Lymph % (Auto) 5.1 L, [place] % (Auto) 4.7, Eos % (Auto) 0.7, Baso % (Auto) 0.1, Neut # (Auto) 11.2 H, Lymph # (Auto) 0.6 L, [place] # (Auto) 0.6, Eos # (Auto) 0.1, Baso # (Auto) 0.0, Total Counted 100, Neutrophils % (Manual) 91 H, Lymphocytes % (Manual) 5 L, Monocytes % (Manual) 4, Platelet Estimate Normal, RBC Morphology Normal, ESR 6 04/15/20 21:58: Sodium 138, Potassium 3.8, Chloride 105, Carbon Dioxide 27, Anion Gap 9.8, BUN 10, Creatinine 1.00, Estimated Creat Clear 137, Estimated GFR 78, Est GFR ( Amer) 94, Glucose 124 H, Calcium 9.0, Total Bilirubin 0.6, AST 25, ALT 29, Alkaline Phosphatase 67, C-Reactive Protein 4.7 H, Total Protein 6.3, Albumin 3.9, Globulin 2.4, Albumin/Globulin Ratio 1.6 04/15/20 21:58: Lactate 1.8 04/16/20 06:08: WBC 14.0 H, RBC 4.36 L, Hgb 13.6 L, Hct 39.3 L, MCV 90.1, MCH 31.1, MCHC 34.5, RDW 13.8, Plt Count
[2020-04-16 09:53] LABS: Eosinophils % 1 % (0-3); Lymphocytes % 2 % (10-50); Monocytes % 6 % (2-9); Neutrophils % 91 % (42-76); Total Cells Counted 100
[2020-04-16 09:54] LABS: Platelet Estimate Normal; RBC Morphology Normal
--- NOTE | 2020-04-16 15:37 | CT_ITS ---
PROCEDURE: CT ABDOMEN PELVIS W CON CLINICAL INDICATION: ureter stent/fever/abscess eval Fever and nausea, abdominal pain. Ureteral stent present, nephrolithiasis COMPARISON: CT ABDOMEN PELVIS W CON from 04/02/2020 TECHNIQUE: IV Contrast: 75ML OPTIRAY 350 Oral Contrast 10ml Gastroview Axial images obtained with sagittal and coronal reformats. All CT scans at the facility use one or more dose reduction, viz: automated exposure control, ma/kV adjustment per patient size (including targeted exams where dose is matched to indication, i.e. head), or iterative reconstruction technique. FINDINGS: LOWER THORAX: Minimal atelectatic changes in the lung bases. ABDOMEN & PELVIS: Cystic lesion involves the left lobe of the liver unchanged. The gallbladder, spleen, adrenal glands and pancreas have an unremarkable appearance. Right kidney is an unremarkable appearance. There is a left-sided double-J ureteral stent in place with the proximal loop well position in the left renal pelvis and the distal loop in the left posterior lateral bladder lumen. Previously identified 8 mm left UPJ stone has been pushed back into the lower pole joshua of the left kidney. No ureteral stones evident. There is moderate left-sided perinephric stranding of the fat and stranding of the retroperitoneal fat in the left hemipelvis mildly increased from the previous exam. There is patchy under enhancement of the lower pole cortex of the left kidney suspicious for possible pyelonephritis. No renal abscess. No perinephric renal abscess. No intestinal obstruction or free air. No evidence of appendicitis. There is a mild amount of retained colonic feces. The the No acute bony findings. Artifact is present from left hip prosthesis. There are scattered small nodes in the inguinal region on both sides IMPRESSION: 1. Patchy cortical under enhancement of the lower pole of the left kidney with mild increase in adjacent perinephric and retroperitoneal stranding of the fat compatible with pyelonephritis. No evidence of abscess. 2. Interval placement of left double-J ureteral stent which appears to be in good position. Previously noted left proximal ureteral stone has been pushed back into the left renal collecting system in the lower pole calyx with improvement in the left hydronephrosis. Dictated by: Justin Garrison MD 04/17/2020 07:59 Electronically signed by Justin Garrison MD in [place] 04/17/2020 07:59
--- NOTE | 2020-04-16 19:08 | PC.NURSE ---
report given to clayton
--- NOTE | 2020-04-16 23:17 | PC.NURSE ---
Addendum entered by Jannie Cooper RN 04/16/20 23:51: patient was agreeable to placing a cool hashcloth on head. will continue to monitor. Original Note: observed patient sitting on side of bed, checks slightly flushed. offered patient a cool bedbath for elevated temperature, patient refused stated its coming down now . offered ice packs patient stated we did that earlier when it kept increasing. reminded patient that temperature is currently 103.2, patient refused ice packs stated its coming down now . tylenol and toradol have been administered. informed patient and family staff would be in the room frequently throughout the night checking temperature.
--- NOTE | 2020-04-16 23:28 | PC.NURSE ---
upon bedside report, pt reports being cold, tylenol 650 mg given PO, temperature 98.3 at 1999, pt reports chilling at that time
--- NOTE | 2020-04-16 23:31 | PC.NURSE ---
temperature rechecked at 2029, increased to 100.3, pt reports chilling, acetaminophen has been administered, spoke with pt about applying ice packs, and removing blankets, pt refused, will continue to monitor
--- NOTE | 2020-04-16 23:33 | PC.NURSE ---
temperature rechecked at 2114 with a reading of 99.4, will continue to monitor
--- NOTE | 2020-04-16 23:34 | PC.NURSE ---
pt due for toradol injection at 2230, temperature spot checked at that time and found to be 103.2, toradol administered, will continue to monitor
--- NOTE | 2020-04-16 23:35 | PC.NURSE ---
2300, 650 mg tylenol administered, IV antibiotic hung, will continue to monitor
[2020-04-17] VITALS (13 sets, daily range): BP systolic 114–135; BP diastolic 63–72; PULSE 62–100; RESP 16–18; TEMP 36.8–38.6; O2SAT 91–97; BMI 31.9
--- NOTE | 2020-04-17 03:20 | PC.NURSE ---
temperature rechecked at this time, 101.5, acetaminophen administered, suggested removing blanket, pt refused
--- NOTE | 2020-04-17 04:09 | PC.NURSE ---
pt temperature rechecked at this time, 101, pt has uncovered, only has sheet on, will continue to monitor
[2020-04-17 05:49] LABS: Basophils % 0.1 % (0.1-2.0); Eosinophils % 0.1 % (0.1-12.0); Hematocrit 35.3 % (42.0-52.0); Hemoglobin 12.5 g/dL (14.1-18.0); Lymphocytes # 0.8 K/mm3 (0.7-4.5); Lymphocytes % 6.2 % (10-50); Mean Corpuscular HGB Conc 35.5 g/dL (31.8-35.4); Mean Corpuscular Hemoglobin 31.1 pg (27.0-31.2); Mean Corpuscular Volume 87.7 fl (80-94); Mean Platelet Volume 7.3 fl (7.4-10.4); Monocytes # 0.7 K/mm3 (0.1-1.0); Monocytes % 5.5 % (1.7-9.3); Neutrophils # 10.8 K/mm3 (1.8-7.8); Neutrophils % 88.1 % (37.0-80.0); Platelet Count 153 K/mm3 (142-424); Red Blood Count 4.02 M/mm3 (4.60-6.20); Red Cell Distribution Width 13.8 % (11.5-17.5); White Blood Count 12.2 K/mm3 (4.8-10.8)
[2020-04-17 05:54] LABS: MANUAL DIFFERENTIAL MANUAL DIFFERENTIAL (MANUAL DIFF)
[2020-04-17 05:57] LABS: Chloride 107 mmol/L (98-107); Potassium 3.3 mmoL/L (3.5-5.1); Sodium 135 mmol/L (136-145)
[2020-04-17 06:00] LABS: Alanine Aminotransferase 25 U/L (12-78); Albumin Level 2.9 g/dl (3.5-5.0); Albumin/Globulin Ratio 1.3 (1.1-1.8); Alkaline Phosphatase 50 U/L (38-126); Anion Gap 5.3 mEq/L (5-15); Aspartate Amino Transferase 31 U/L (17-59); Bilirubin,Total 0.9 mg/dl (0.2-1.3); Blood Urea Nitrogen 10 mg/dl (9-20); Carbon Dioxide 26 mmol/L (22.0-30.0); Creatinine Clearance Estimated 176 mL/min (50-200); Estimated Glomerular Filt Rate 100 ml/min (>60); GFR (African American) 121 ML/MIN (>60); Globulin 2.2 g/dL (1.3-3.2); Total Protein,Serum 5.1 g/dl (6.3-8.2)
[2020-04-17 06:01] LABS: Calcium 7.9 mg/dl (8.4-10.2); Glucose 119 mg/dl (74-100)
--- NOTE | 2020-04-17 06:15 | PC.NURSE ---
temperature spot checked with reading of 100.4 orally. patient reports aching toradol 30mg ivp given. will continue to monitor.
[2020-04-17 08:19] LABS: Coronavirus 19 IgG Antibody Negative (Negative); Coronavirus 19 IgM Antibody Negative (Negative)
--- NOTE | 2020-04-17 08:46 | HMH.ACPN2 ---
Internal Medicine - PN: Subj *Date: 04/17/20 *Time: 08:46 Interval history: 54-year-old male with intermittent fever overnight. Tolerating IV antibiotics at this time. Reviewed imaging, CT positive for pyelonephritis. Patient laying in bed comfortable on interview this morning but states he had a rough night with Reiger's, fever, significant sweating. Denies any chest pain or shortness of breath. No flank pain per her report. No nausea or diarrhea. Patient stable on room air. Reviewed culture, growing gram-positive cocci at this time, sensitivity and speciation still pending Exam Vital signs and Labs for Last 24 Hours: Temp Pulse Resp BP Pulse Ox 98.3 F 79 18 117/67 94 L 04/17/20 07:41 04/17/20 07:41 04/17/20 07:41 04/17/20 07:41 04/17/20 07:41 Laboratory Results - last 24 hr 04/15/20 21:16: Urine Color Yellow, Urine Appearance Clear, Urine pH 7.5, Ur Specific [place] 1.010, Urine Protein Negative, Urine Glucose (UA) Negative, Urine Ketones Negative, Urine Blood Trace-i, Urine Nitrate Negative, Urine Bilirubin Negative, Urine Urobilinogen 0.2, Ur Leukocyte Esterase 1+ A, Urine WBC 3-5, Ur Squamous Epith Cells Occasional, Urine Bacteria Trace 04/16/20 06:08: Total Counted 100, Neutrophils % (Manual) 91 H, Lymphocytes % (Manual) 2 L, Monocytes % (Manual) 6, Eosinophils % (Manual) 1, Platelet Estimate Normal, RBC Morphology Normal 04/17/20 05:33: WBC 12.2 H, RBC 4.02 L, Hgb 12.5 L, Hct 35.3 L, MCV 87.7, MCH 31.1, MCHC 35.5 H, RDW 13.8, Plt Count 153, MPV 7.3 L, Neut % (Auto) 88.1 H, Lymph % (Auto) 6.2 L, [place] % (Auto) 5.5, Eos % (Auto) 0.1, Baso % (Auto) 0.1, Neut # (Auto) 10.8 H, Lymph # (Auto) 0.8, [place] # (Auto) 0.7, Eos # (Auto) 0.0, Baso # (Auto) 0.0 04/17/20 05:33: Sodium 135 L, Potassium 3.3 L, Chloride 107, Carbon Dioxide 26, Anion Gap 5.3, BUN 10, Creatinine 0.80, Estimated Creat Clear 176, Estimated GFR 100, Est GFR ( Amer) 121, Glucose 119 H, Calcium 7.9 L, Total Bilirubin 0.9, AST 31, ALT 25, Alkaline Phosphatase 50, Total Protein 5.1 L, Albumin 2.9 L D, Globulin 2.2, Albumin/Globulin Ratio 1.3 04/17/20 05:33: SARS-CoV-2 IgG Ab (Rapid) Negative, SARS-CoV-2 IgM Ab (Rapid) Negative I & O for Last 24 hours: Intake & Output 04/14/20 04/15/20 04/16/20 04/17/20 23:59 23:59 23:59 23:59 Intake Total 2621 / 2621 1607 / 1607 Output Total Balance 2621 / 2620 1606 / 1606 Weight 115.666 kg 116.573 kg 119.04 kg Microbiology Reports for the Last 24 Hours: Microbiology 04/15/20 21:16 Urine,Clean Catch Urine Culture - Preliminary Gram Positive Cocci - Constitutional no acute distress, obese - *Routine HEENT Exam Head: Present: normocephalic Eye: Present: EOMI, PERRL ENT: Present: mucous membranes moist - *Routine Neck Exam Present: supple. Absent: lymphadenopathy - *Routine Respiratory Exam Present: CTA bilaterally - *Routine Cardiovascular Exam Present: RRR - *Routine Abdominal Exam Present: soft, normoactive bowel sounds - *Routine Extremities Exam Absent: cyanosis, clubbing, edema - Routine Back/Spine/Pelvis Exam Back/Spine: Present: CVA tenderness (Worse on the right than the left per his report but very mild bilaterally) - *Routine Neurological Exam Present: alert, oriented X3 Assessment and Plan (1) Sepsis Current visit: Yes Status: Acute Qualifiers: Sepsis acute organ dysfunction status: without acute organ dysfunction Category: Medical Code(s): A41.9 - Sepsis, unspecified organism Tachycardic on admission, febrile, positive findings for pyelonephritis. Sepsis protocol performed, cultures pending. Symptoms improving somewhat. Continue broad-spectrum antibiotics with de-escalation based on sensitivities. (2) Pyelonephritis of left kidney Current visit: Yes Status: Acute Category: Medical Code(s): N12 - Tubulo-interstitial nephritis, not specified as acute or chronic Gram-positive cocci at this t
--- NOTE | 2020-04-17 08:58 | HMH.PHACONS ---
- Pharmacy Consult Date: 04/17/20 Time: 08:58 Referring provider: DR. BAUTISTA Reason for Consult:: VANCOMYCIN DOSING Allergies and ADEs:: Allergies Allergy/AdvReac Type Severity Reaction Status Date / Time No Known Allergies Allergy Unverified 10/04/17 14:55 Home Medications:: Home Medications Medication Instructions Recorded Confirmed Type Losartan Potassium 100 mg PO HS 04/03/20 04/16/20 History Amlodipine Besylate [Amlodipine 5 mg PO DAILY 04/16/20 04/16/20 History 5mg tab] Zolpidem Tartrate 5 - 10 mg PO HSP PRN 04/16/20 04/16/20 History Height: 1.93 m Weight: 119.04 kg Laboratory Results:: Laboratory Results - last 24 hr 04/15/20 21:16: Urine Color Yellow, Urine Appearance Clear, Urine pH 7.5, Ur Specific [place] 1.010, Urine Protein Negative, Urine Glucose (UA) Negative, Urine Ketones Negative, Urine Blood Trace-i, Urine Nitrate Negative, Urine Bilirubin Negative, Urine Urobilinogen 0.2, Ur Leukocyte Esterase 1+ A, Urine WBC 3-5, Ur Squamous Epith Cells Occasional, Urine Bacteria Trace 04/16/20 06:08: Total Counted 100, Neutrophils % (Manual) 91 H, Lymphocytes % (Manual) 2 L, Monocytes % (Manual) 6, Eosinophils % (Manual) 1, Platelet Estimate Normal, RBC Morphology Normal 04/17/20 05:33: WBC 12.2 H, RBC 4.02 L, Hgb 12.5 L, Hct 35.3 L, MCV 87.7, MCH 31.1, MCHC 35.5 H, RDW 13.8, Plt Count 153, MPV 7.3 L, Neut % (Auto) 88.1 H, Lymph % (Auto) 6.2 L, [place] % (Auto) 5.5, Eos % (Auto) 0.1, Baso % (Auto) 0.1, Neut # (Auto) 10.8 H, Lymph # (Auto) 0.8, [place] # (Auto) 0.7, Eos # (Auto) 0.0, Baso # (Auto) 0.0 04/17/20 05:33: Sodium 135 L, Potassium 3.3 L, Chloride 107, Carbon Dioxide 26, Anion Gap 5.3, BUN 10, Creatinine 0.80, Estimated Creat Clear 176, Estimated GFR 100, Est GFR ( Amer) 121, Glucose 119 H, Calcium 7.9 L, Total Bilirubin 0.9, AST 31, ALT 25, Alkaline Phosphatase 50, Total Protein 5.1 L, Albumin 2.9 L D, Globulin 2.2, Albumin/Globulin Ratio 1.3 04/17/20 05:33: SARS-CoV-2 IgG Ab (Rapid) Negative, SARS-CoV-2 IgM Ab (Rapid) Negative Medical History: Reports:: Hypertension Denies:: Cancer, Diabetes Mellitus Type 1, Diabetes Mellitus Type 2 Assessment and Plan (1) Sepsis Current visit: Yes Status: Acute Qualifiers: Sepsis acute organ dysfunction status: without acute organ dysfunction Category: Medical Code(s): A41.9 - Sepsis, unspecified organism (2) Pyelonephritis of left kidney Current visit: Yes Status: Acute Category: Medical Code(s): N12 - Tubulo-interstitial nephritis, not specified as acute or chronic (3) Febrile illness, acute Current visit: Yes Status: Acute Category: Medical Code(s): R50.9 - Fever, unspecified (4) Renal colic on left side Current visit: Yes Status: Acute Category: Medical Code(s): N23 - Unspecified renal colic (5) Obesity (BMI 30.0-34.9) Current visit: No Status: Chronic Category: Medical Code(s): E66.9 - Obesity, unspecified - Assessment and plan all Dx Assessment and Plan for all problems:: BASED ON PATIENT'S FACTORS, RECOMMEND STARTING WITH VANCOMYCIN 2000 MG Q8H AT THIS TIME. PHARMACY WILL FOLLOW DAILY AND ADJUST APPROPRIATE.
[2020-04-17 09:15] LABS: Lymphocytes % 6 % (10-50); Monocytes % 7 % (2-9); Neutrophils % 87 % (42-76); Platelet Estimate Normal; RBC Morphology Normal; Total Cells Counted 100
--- NOTE | 2020-04-17 16:53 | HMH.CONS ---
*Admission Date: 04/16/20 *Reason for consult:: Pyelonephritis *History of present illness: Patient is a 54-year-old white male admitted to the hospital through the emergency room on April 15. Patient states that he began having flulike symptoms and shaking chills the 24 hours prior to admission. He does have some associated urinary urgency and frequency which are consistent with a ureteral stent. Patient had a cystoscopy with stone manipulation and stent placement 2 weeks ago. He is scheduled for left ESWL on April 25. His white count slightly elevated at 12.6 thousand on admission. He went to 14,000 on April 16 and is back down to 12,000 today. His creatinine is normal. CT scan was performed showing the stent is in good position. The stone has been manipulated back into the left lower pole. There is evidence of some moderate left-sided perinephric stranding and some signs of pyelonephritis. Urine cultures growing greater than 10 to the fifth gram-positive cocci with ID pending. He appears comfortable in bed during the exam. [facility] History Medical History: Reports:: Hypertension Denies:: Cancer, Diabetes Mellitus Type 1, Diabetes Mellitus Type 2 *Have you ever received a pneumonia vaccine?: No *Have you received a flu vaccine this season?: Yes Other Medical History: Reports: Other (MAURA-cpap ) Laterality Cases: Left: Total Hip Replacement Other Surgeries: Yes: Other (open right adrenalectomy, hammer toe surg) Fractures: Yes - *Social History Smoking Status: Current every day smoker Tobacco Type: smokeless tobacco # Packs/Day (cigarettes): 0 Alcohol Intake: never Alcohol Intake Frequency:: a few times a month Substance Use Type: denies use *Occupational Status:: employed Housing: house Household Members: spouse *Travel in the last 8 weeks: None Family Hx:: Cancer, Stroke Review of Systems - Review of Systems Review of systems:: pertinent systems reviewed and negative unless documented below - *Neurologic Denies headache(s), Denies loss of vision Meds Home Medications Medication Instructions Recorded Confirmed Type Losartan Potassium 100 mg PO HS 04/03/20 04/16/20 History Amlodipine Besylate [Amlodipine 5 mg PO DAILY 04/16/20 04/16/20 History 5mg tab] Zolpidem Tartrate 5 - 10 mg PO HSP PRN 04/16/20 04/16/20 History Allergies Allergy/AdvReac Type Severity Reaction Status Date / Time No Known Allergies Allergy Unverified 10/04/17 14:55 Exam Vital signs and Labs for Last 24 Hours: Temp Pulse Resp BP Pulse Ox 98.4 F 62 18 127/70 94 L 04/17/20 14:46 04/17/20 14:46 04/17/20 14:46 04/17/20 14:46 04/17/20 14:46 Laboratory Results - last 24 hr 04/15/20 21:16: Urine Color Yellow, Urine Appearance Clear, Urine pH 7.5, Ur Specific [place] 1.010, Urine Protein Negative, Urine Glucose (UA) Negative, Urine Ketones Negative, Urine Blood Trace-i, Urine Nitrate Negative, Urine Bilirubin Negative, Urine Urobilinogen 0.2, Ur Leukocyte Esterase 1+ A, Urine WBC 3-5, Ur Squamous Epith Cells Occasional, Urine Bacteria Trace 04/17/20 05:33: WBC 12.2 H, RBC 4.02 L, Hgb 12.5 L, Hct 35.3 L, MCV 87.7, MCH 31.1, MCHC 35.5 H, RDW 13.8, Plt Count 153, MPV 7.3 L, Neut % (Auto) 88.1 H, Lymph % (Auto) 6.2 L, [place] % (Auto) 5.5, Eos % (Auto) 0.1, Baso % (Auto) 0.1, Neut # (Auto) 10.8 H, Lymph # (Auto) 0.8, [place] # (Auto) 0.7, Eos # (Auto) 0.0, Baso # (Auto) 0.0, Total Counted 100, Neutrophils % (Manual) 87 H, Lymphocytes % (Manual) 6 L, Monocytes % (Manual) 7, Platelet Estimate Normal, RBC Morphology Normal 04/17/20 05:33: Sodium 135 L, Potassium 3.3 L, Chloride 107, Carbon Dioxide 26, Anion Gap 5.3, BUN 10, Creatinine 0.80, Estimated Creat Clear 176, Estimated GFR 100, Est GFR ( Amer) 121, Glucose 119 H, Calcium 7.9 L, Total Bilirubin 0.9, AST 31, ALT 25, Alkaline Phosphatase 50, Total Protein 5.1 L, Albumin 2.9 L D, Globulin 2.2, Albumin/Globulin Ratio 1.3 04/17/20 05:33: SARS-CoV-2 IgG Ab (Rapid) Negative, SARS-CoV-2 IgM Ab
[2020-04-18 01:09] VITALS: TEMP 37.3
[2020-04-18 03:34] VITALS: TEMP 36.7
[2020-04-18 03:53] VITALS: BP 126/77; PULSE 67; RESP 19; TEMP 36.3; O2SAT 92
[2020-04-18 05:00] VITALS: BMI 31.9
[2020-04-18 06:00] VITALS: TEMP 37.2
--- NOTE | 2020-04-18 06:32 | PC.NURSE ---
shift summary, pt temperature has been spot checked several times this shift, highest temperature was 99.9, lowest temperature was 97.4, pt has ambulated to bathroom several times independently, pt has rested well t/o shift
[2020-04-18 06:40] LABS: Chloride 107 mmol/L (98-107); Potassium 3.7 mmoL/L (3.5-5.1); Sodium 137 mmol/L (136-145)
[2020-04-18 06:42] LABS: Alanine Aminotransferase 23 U/L (12-78); Aspartate Amino Transferase 29 U/L (17-59); Blood Urea Nitrogen 7 mg/dl (9-20); Creatinine Clearance Estimated 176 mL/min (50-200); Estimated Glomerular Filt Rate 100 ml/min (>60); GFR (African American) 121 ML/MIN (>60)
[2020-04-18 06:43] LABS: Albumin Level 2.9 g/dl (3.5-5.0); Albumin/Globulin Ratio 1.2 (1.1-1.8); Alkaline Phosphatase 49 U/L (38-126); Anion Gap 4.7 mEq/L (5-15); Bilirubin,Total 0.6 mg/dl (0.2-1.3); Calcium 7.9 mg/dl (8.4-10.2); Carbon Dioxide 29 mmol/L (22.0-30.0); Globulin 2.5 g/dL (1.3-3.2); Glucose 97 mg/dl (74-100); Total Protein,Serum 5.4 g/dl (6.3-8.2)
[2020-04-18 06:44] LABS: Basophils % 0.1 % (0.1-2.0); Eosinophils # 0.1 K/mm3 (0.0-0.4); Eosinophils % 1.5 % (0.1-12.0); Hematocrit 35.2 % (42.0-52.0); Hemoglobin 12.3 g/dL (14.1-18.0); Lymphocytes # 1.2 K/mm3 (0.7-4.5); Lymphocytes % 18.1 % (10-50); Mean Corpuscular HGB Conc 34.9 g/dL (31.8-35.4); Mean Corpuscular Volume 88.8 fl (80-94); Mean Platelet Volume 7.3 fl (7.4-10.4); Monocytes # 0.5 K/mm3 (0.1-1.0); Monocytes % 6.9 % (1.7-9.3); Neutrophils % 73.4 % (37.0-80.0); Platelet Count 135 K/mm3 (142-424); Red Blood Count 3.96 M/mm3 (4.60-6.20); Red Cell Distribution Width 13.8 % (11.5-17.5); White Blood Count 6.8 K/mm3 (4.8-10.8)
[2020-04-18 08:00] VITALS: BP 141/83; PULSE 71; RESP 16; TEMP 36.7; O2SAT 96
--- NOTE | 2020-04-18 08:06 | HMH.DCSUM ---
General - General Admission date:: 04/16/20 Discharge date: 04/18/20 HPI HPI: 54-year-old white male with recent history of nephrolithiasis, with stent placement who was discharged approximately 10 days ago from the hospital with stent in place with plans for lithotripsy as an outpatient. He received 4 days of Levaquin and then this medication was discontinued. He has done well until the last 24 hours when he began to have flulike symptoms, shaking chills. He did not notice any change in his urine character but has chronic urgency and frequency based on the presence of the stent in the ureter. Came to the emergency department, found to have an abnormal urinalysis, and admitted for IV antibiotics, urology consultation given his high risk of recurrent UTI given foreign body in the urinary tract. Patient denies respiratory symptoms. Hospital Course Hospital Course: Patient was admitted, placed on broad-spectrum IV antibiotics. Urine culture showed gram-positive cocci and vancomycin was added to his coverage because of his Sirs presentation. He responded well to this. Urology consultation was obtained, recommended continuing antibiotics until outpatient follow-up. Over the past 24 hours the patient responded very nicely with defervescence, blood cultures were negative, urine culture showed Staphylococcus capitis, sensitive to doxycycline and patient wished to be discharged home today. Exam is normalized, plan will be to discharge with doxycycline, follow-up with urology for ongoing lithotripsy plan. Objective Vital signs: Temp Pulse Resp BP Pulse Ox 99 F 67 19 126/77 92 L 04/18/20 06:00 04/18/20 03:53 04/18/20 03:53 04/18/20 03:53 04/18/20 03:53 no acute distress - *Routine HEENT Exam Head: Present: normocephalic Eye: Present: EOMI, PERRL ENT: Present: mucous membranes moist - *Routine Neck Exam Present: supple - *Routine Respiratory Exam Present: CTA bilaterally - *Routine Cardiovascular Exam Present: RRR - *Routine Abdominal Exam Present: soft, normoactive bowel sounds. Absent: tenderness - *Routine Extremities Exam Absent: cyanosis, clubbing, edema - *Routine Skin Exam Present: warm. Absent: rash - Detailed Eye Exam Eyelids: Bilateral normal inspection Results Labs on day of discharge: Labs from last 24 hours 04/18/20 04/18/20 04/17/20 06:15 06:15 05:33 WBC 6.8 D RBC 3.96 L Hgb 12.3 L Hct 35.2 L MCV 88.8 MCH 31.0 MCHC 34.9 RDW 13.8 Plt Count 135 L MPV 7.3 L Neut % (Auto) 73.4 Lymph % (Auto) 18.1 [place] % (Auto) 6.9 Eos % (Auto) 1.5 Baso % (Auto) 0.1 Neut # (Auto) 5.0 Lymph # (Auto) 1.2 [place] # (Auto) 0.5 Eos # (Auto) 0.1 Baso # (Auto) 0.0 Total Counted Neutrophils % (Manual) Lymphocytes % (Manual) Monocytes % (Manual) Platelet Estimate RBC Morphology Sodium 137 Potassium 3.7 Chloride 107 Carbon Dioxide 29 Anion Gap 4.7 L BUN 7 L D Creatinine 0.80 Estimated Creat Clear 176 Estimated GFR 100 Est GFR ( Amer) 121 Glucose 97 Calcium 7.9 L Total Bilirubin 0.6 AST 29 ALT 23 Alkaline Phosphatase 49 Total Protein 5.4 L Albumin 2.9 L Globulin 2.5 Albumin/Globulin Ratio 1.2 SARS-CoV-2 IgG Ab (Rapid) Negative SARS-CoV-2 IgM Ab (Rapid) Negative 04/17/20 05:33 WBC RBC Hgb Hct MCV MCH MCHC RDW Plt Count MPV Neut % (Auto) Lymph % (Auto) [place] % (Auto) Eos % (Auto) Baso % (Auto) Neut # (Auto) Lymph # (Auto) [place] # (Auto) Eos # (Auto) Baso # (Auto) Total Counted 100 Neutrophils % (Manual) 87 H Lymphocytes % (Manual) 6 L Monocytes % (Manual) 7 Platelet Estimate Normal RBC Morphology Normal Sodium Potassium Chloride Carbon Dioxide Anion Gap BUN Creatinine Estimated Creat Clear Estimated GFR Est GFR ( Amer) Glucose Calcium Total
== END 2020-04-18 09:00 | disposition home or self-care (01) | DRG 690 ==
LOC: ER 21:15 → 2ND 23:37
PROVIDERS: Internal Medicine Adolescent Medicine; Admitting Provider Internal Medicine Adolescent Medicine; Emergency Provider Emergency Medicine; PCP Internal Medicine; Visit Provider Internal Medicine Adolescent Medicine
DX: N10 Acute pyelonephritis (principal); R65.10 Systemic inflammatory response syndrome (SIRS) of non-infectious origin without acute organ dysfunction; N20.2 Calculus of kidney with calculus of ureter; N20.9 Urinary calculus, unspecified; Z72.0 Tobacco use; Z87.442 Personal history of urinary calculi
CPT/HCPCS: 36415; 71046; 74177; 80048; 80053; 81001; 83605; 85007; 85025; 85651; 86140; 86328; 87040; 87086; 87088; 87186; 96365; 96367; 96375; 99285; J1335; J2405; J3370; Q9967

== ENCOUNTER → 2020-04-24 10:20 | Outpatient (CLI) | payer BC, SELFPAY ==
[2020-04-24 10:45] LABS: Basophils % 0.4 % (0.1-2.0); Eosinophils # 0.2 K/mm3 (0.0-0.4); Eosinophils % 2.3 % (0.1-12.0); Hematocrit 43.8 % (42.0-52.0); Hemoglobin 15.2 g/dL (14.1-18.0); Lymphocytes # 1.7 K/mm3 (0.7-4.5); Lymphocytes % 21.5 % (10-50); Mean Corpuscular HGB Conc 34.6 g/dL (31.8-35.4); Mean Corpuscular Hemoglobin 30.6 pg (27.0-31.2); Mean Corpuscular Volume 88.5 fl (80-94); Mean Platelet Volume 7.1 fl (7.4-10.4); Monocytes # 0.3 K/mm3 (0.1-1.0); Monocytes % 4.1 % (1.7-9.3); Neutrophils # 5.6 K/mm3 (1.8-7.8); Neutrophils % 71.8 % (37.0-80.0); Platelet Count 371 K/mm3 (142-424); Red Blood Count 4.95 M/mm3 (4.60-6.20); Red Cell Distribution Width 13.7 % (11.5-17.5); White Blood Count 7.7 K/mm3 (4.8-10.8)
[2020-04-24 11:13] LABS: Chloride 102 mmol/L (98-107); Potassium 4.3 mmoL/L (3.5-5.1); Sodium 137 mmol/L (136-145)
[2020-04-24 11:16] LABS: Anion Gap 9.3 mEq/L (5-15); Blood Urea Nitrogen 12 mg/dl (9-20); Calcium 9.2 mg/dl (8.4-10.2); Carbon Dioxide 30 mmol/L (22.0-30.0); Estimated Glomerular Filt Rate 100 ml/min (>60); GFR (African American) 121 ML/MIN (>60); Glucose 95 mg/dl (74-100)
[2020-04-24 12:06] LABS: Coronavirus 19 IgG Antibody Negative (Negative); Coronavirus 19 IgM Antibody Negative (Negative)
== END ==
PROVIDERS: Visit Provider Urology
DX: Z01.818 Encounter for other preprocedural examination (principal); N23 Unspecified renal colic
CPT/HCPCS: 36415; 80048; 85025; 86328

== ENCOUNTER 2020-04-25 07:33 | Day surgery (SDC) | payer BC, SELFPAY ==
[2020-04-24 11:07] VITALS: BMI 30.9
[2020-04-25] VITALS (11 sets, daily range): BP systolic 114–130; BP diastolic 69–84; PULSE 66–74; RESP 12–18; TEMP 36.2–36.8; O2SAT 94–97
--- NOTE | 2020-04-25 10:41 | P.PN_ITS ---
[facility] Anesthesia Checklist - Structural Data Admitted From: Home Planned Operative Procedure/s: eswl Consent for Planned Operative Procedure(s) Verified: Yes - Additional verifications Anesthesia Reactions: No Hx Blood Transfusions: No Blood Transfusion Reaction: No - Airway Assessment C-Spine Mobility Assessed: Yes TMJ Mobility Assessed: Yes Dentition: Good Dentition - Neurological Assessment Level of Consciousness: Awake, Alert, Appropriate - Anesthesia Plan Anesthesia Risk discussed: Yes Anesthesia Plan: Verified ASA Class: II Anesthesia Type: General [facility] History I have reviewed the patient's past medical history: Yes Medical History: Reports:: Hypertension, Kidney Stones Denies:: Cancer, Diabetes Mellitus Type 1, Diabetes Mellitus Type 2, Internal Pacemaker, MRSA, Seizures *Have you ever received a pneumonia vaccine?: No *Have you received a flu vaccine this season?: Yes Other Medical History: Reports: Other (MAURA-cpap hs). Denies: Blood Transfusion Reaction Anesthesia experience/problems:: none Laterality Cases: Left: Total Hip Replacement Other Surgeries: Yes: No Previous Surgery, Colonoscopy, Other (open right adrenalectomy, hammer toe surg). No: Pacemaker Amputation: No Fractures: Yes (R arm fx - plate/screws) - *Social History Last grade of school completed: Advanced degree Smoking Status: Never smoker Tobacco Type: smokeless tobacco # Packs/Day (cigarettes): 0 Alcohol Intake: current Alcohol Intake Frequency:: holidays/special occasions only Substance Use Type: denies use *Occupational Status:: employed Housing: house Household Members: spouse *Travel in the last 8 weeks: None Family Hx:: Cancer, Stroke
--- NOTE | 2020-04-25 10:42 | HMH.ANESI ---
[facility] Anesthesia Record Part I Intake, IV Amount: 1,000 Estimated blood loss (mL): 0 Urine output (mL): 0 Blood Pressure: 118/81 SaO2: 96 Pulse Rate: 71 Respiratory Rate: 12 Temperature: 97.9 F Patient is:: Awake, Stable Stable to PACU at:: 10:40
--- NOTE | 2020-04-25 13:54 | HMH.OPNOTE ---
Date of procedure: 04/25/20 Pre-op Diagnosis:: 10 x 7 mm left lower pole stone Post-op Diagnosis:: Same Procedure performed:: Left ESWL Surgeon:: Juanito Lubin MD [employer]YROLL SUPERVISOR:: Ritchie Augustine Anesthesia: GETA Estimated blood loss (mL): 0 Clinical Note:: 54-year-old white male with history of proximal left ureteral stone. He has undergone previous stone manipulation left stent placement. Course was complicated by pyelonephritis last weekend but he has recovered from that and presents for ESWL. Operative findings:: Fluoroscopy revealed stone in the left lower pole with a stent in good position. ESWL appeared to fragment the stone very well. Operative note:: Patient taken to the operating room after informed consent was obtained. Placed the operating table in the supine position. Preoperative antibiotics administered and he was on oral doxycycline as well for recent staph pyelonephritis. Sequential compression devices placed. Patient was positioned so that F2 was focused onto the left lower pole stone and 3000 shockwaves delivered to the stone with good fragmentation. Maximum energy level of 7 was utilized. Patient tolerated procedure well no complications. Patient discharged to recovery room with instructions for postural drainage and a few pain pills. He will continue his oral antibiotics at home. See him back on Tuesday with a KUB. Condition: stable Disposition: PACU Specimens:: None Complications:: None
== END 2020-04-25 12:10 | disposition home or self-care (01) ==
LOC: OR 07:34
PROVIDERS: PCP Internal Medicine; Visit Provider Urology
PROC: (CPT 50590; principal; 2020-04-25 09:15)
DX: N20.1 Calculus of ureter (principal); N17.9 Acute kidney failure, unspecified; I10 Essential (primary) hypertension; Z96.649 Presence of unspecified artificial hip joint; Z87.39 Personal history of other diseases of the musculoskeletal system and connective tissue; Z82.3 Family history of stroke; Z80.9 Family history of malignant neoplasm, unspecified; Z72.0 Tobacco use; Z79.899 Other long term (current) drug therapy
CPT/HCPCS: 50590; J1956; J2405

== ENCOUNTER → 2020-04-28 10:26 | Outpatient (CLI) | payer BC, SELFPAY ==
--- NOTE | 2020-04-28 10:28 | XR_ITS ---
PROCEDURE: XR KUB CLINICAL INDICATION: ureteral stone COMPARISON: CT ABDOMEN PELVIS W CON from 04/16/2020 FINDINGS: There is a left ureteral stent in place which appears to be in good position. No obvious ureteral calculi. There is a small stone along the lower pole left kidney at 4 mm. There has an a prior total left hip prosthesis placement and there are degenerative changes of the right hip. IMPRESSION: Left ureteral stent in position. Dictated by: Justin Garrison MD 04/28/2020 12:59 Electronically signed by Justin Garrison MD in [place] 04/28/2020 12:59
== END ==
PROVIDERS: PCP Internal Medicine; Visit Provider Urology
DX: N20.1 Calculus of ureter (principal)
CPT/HCPCS: 74018

== ENCOUNTER → 2021-10-12 14:32 | Outpatient (CLI) | payer BC, SELFPAY ==
[2021-10-12 18:51] LABS: Strep Scrn Group A (Rapid) Negative (Negative)
== END ==
PROVIDERS: PCP Internal Medicine; Visit Provider Internal Medicine
DX: Z20.822 Contact with and (suspected) exposure to COVID-19 (principal); J02.9 Acute pharyngitis, unspecified
CPT/HCPCS: 87430; C9803; U0003; U0005

== ENCOUNTER → 2022-04-20 09:56 | Outpatient (CLI) | payer BC, SELFPAY ==
--- NOTE | 2022-04-20 10:01 | MR_ITS ---
FINAL REPORT CLINICAL HISTORY: LT KNEE MENISCUS TEAR, ACUTE PAIN OF LT KNEE FINDINGS: Multiplanar MR imaging of the left knee was performed without contrast. The medial meniscus is intact. There is a probable tear of the lateral meniscus. The anterior and posterior cruciate ligaments are intact. The medial collateral ligament and lateral ligamentous complex are intact. The patellar and quadriceps tendons are intact. There is no evidence of fracture. 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 Small joint effusion is seen. The musculature is intact. No soft tissue mass or cyst is identified. IMPRESSION: Probable lateral meniscal tear. Degenerative change and chondromalacia. Reviewed, Interpreted and Dictated by Fili Celis III, MD Transcribed by Alis Burton Authenticated and . [facility]
== END ==
PROVIDERS: PCP Internal Medicine; Visit Provider Orthopaedic Surgery
DX: M23.301 Other meniscus derangements, unspecified lateral meniscus, left knee (principal); M25.562 Pain in left knee
CPT/HCPCS: 73721

== ENCOUNTER 2022-05-03 11:48 | Emergency (ER) | payer BC, SELFPAY ==
[2022-05-03 12:00] VITALS: BP 131/77; PULSE 102; RESP 19; TEMP 37.2; O2SAT 98; BMI 33.1
--- NOTE | 2022-05-03 12:19 | HMH.EDUTC ---
[facility] [place]position Clinical Impression: URI (upper respiratory infection) Qualifiers: URI type: unspecified URI Qualified Code(s): J06.9 - Acute upper respiratory infection, unspecified Disposition: Home, Self-Care Condition on Discharge: Good Instructions: Sore Throat, DI for Sinusitis, DI for Fever (Symptom) -- Adult Additional Instructions: *Monitor Temp, Over the counter Motrin or Tylenol as directed/as needed Tylenol every 4 hours and Motrin every 6 hours (as long as your family doctor has told you that you can take it) for fever or pain. and straight to ER if unable to lower temp less than 101.0 after medication given *Warm salt water gargles may help to soothe the throat *Throat Lozenges *Warm fluids like tea with honey may help to soothe the throat *Sleep elevated *Humidifier/Vaporizer Follow up IMMEDIATELY for new or worsening symptoms or no Noticeable improvement over the next 48-72 hours. 911 for difficulty breathing or swallowing You were tested for today for COVID19 your test result should be back in the next 24-48 hours, you may Check your results on the [facility] My Health Portal Make sure to take your Vitamins Vit. C Vit D and Zinc if you can take them Prescriptions: Benzonatate [Benzonatate 100mg cap] 100 mg PO Q8HP PRN #30 cap PRN Reason: Cough Transmission Status: Pending to [facility] methylPREDNISolone [Medrol 4mg tab] 4 mg PO DIRECTED #21 tab Transmission Status: Pending to [facility] Azithromycin [Z-Elian 250mg Tab] 250 mg PO DIRECTED #6 tab Transmission Status: Pending to [facility] Referrals: Lavon Briec MD [Primary Care Provider] - As needed Forms: Work/School Release Medical Decision Making - Suhail Inquiry Pt receiving controlled substance: No Suhail was queried for this patient: No Vital Signs: 05/03/22 12:00 Temperature 99.0 F Temperature Source Oral Pulse Rate [Left Brachial] 102 H Respiratory Rate 19 Blood Pressure [Left Arm] 131/77 Blood Pressure Mean [Left Arm] 95 Blood Pressure Source [Left Arm] Automatic Cuff Blood Pressure Position [Left Arm] Sitting 02 Sat by Pulse Oximetry 98 Oxygen Delivery Method Room Air Orders (Tests/Meds): ORDERS Category Date Time Status Full Resp Panel w/COVID ([facility]) Routine Lab 05/03/22 12:08 Ordered [facility] [place] HPI - General Stated complaint: Sore throat;body aches; chest congestion Time Seen by Provider: 05/03/22 12:10 Mode of Arrival: Ambulatory Source of Information: Patient Limitations: No Limitations Description of Symptoms (Recalled from Triage Doc. by RN): PATIENT C/O FATIGUE, JOINT AND MUSCLE ACHES, COUGH, CHEST/SINUS CONGESTION, AND LOW-GRADE FEVER X 2 DAYS HEENT Symptoms (Recalled from RN notes): Yes Resp Symptoms (Recalled from RN notes): Yes Skin Symptoms (Recalled from RN notes): No MS Symptoms (Recalled from RN notes): No Functional Status (Recalled from RN notes): WNL - History of Present Illness Provider Complaint: Patient states that he has been having sinus pain and pressure, drainage, cough and chest congestion, feeling achy and fatigue for several days that has continued to get worse Denies known exposure to COVID States that today he came in just to get tested and treated for his symptoms - Related Data Home Medications Medication Instructions Recorded Confirmed Losartan Potassium 100 mg PO HS 04/03/20 05/03/22 Amlodipine Besylate [Amlodipine 5 mg PO DAILY 04/16/20 05/03/22 5mg tab] Previous Rx's Medication Instructions Recorded Azithromycin [Z-Elian 250mg Tab] 250 mg PO DIRECTED #6 tab 05/03/22 Benzonatate [Benzonatate 100mg 100 mg PO Q8HP PRN #30 cap 05/03/22 cap] methylPREDNISolone [Medrol 4mg 4 mg PO DIRECTED #21 tab 05/03/22 tab] Allergies Allergy/AdvReac Type Severity Reaction Status Date / Time No Known Allergies Allergy Verified 10/29/21 09:29 - Worker's Comp Is this a Worker's Comp case?: No [facility] Histo
[2022-05-03 12:21] LABS: Adenovirus,PCR Not Detected (NotDetected); Bordetella Pertussis Not Detected (NotDetected); Chlamydophila Pneumoniae, PCR Not Detected (NotDetected); Coronavirus 229E Not Detected (NotDetected); Coronavirus NL63 Not Detected (NotDetected); Coronavirus OC43 Not Detected (NotDetected); Coronovirus HKU1,PCR Not Detected (NotDetected); Human Metapneumovirus Not Detected (NotDetected); Influenza A, PCR Not Detected (NotDetected); Influenza AH1, 2009 Not Detected (NotDetected); Influenza AH1, PCR Not Detected (NotDetected); Influenza AH3,PCR Not Detected (NotDetected); Influenza B, PCR Not Detected (NotDetected); Mycoplasma Pneumoniae, PCR Not Detected (NotDetected); Parainfluenza 1, PCR Not Detected (NotDetected); Parainfluenza 2, PCR Not Detected (NotDetected); Parainfluenza 3, PCR Not Detected (NotDetected); Parainfluenza 4, PCR Not Detected (NotDetected); Respiratory Syncytial Virus Not Detected (NotDetected); Rhinovirus/Enterovirus Not Detected (NotDetected)
[2022-05-03 12:25] VITALS: BP 131/77; PULSE 102; RESP 19; TEMP 37.2; O2SAT 98
[2022-05-03 14:17] LABS: Coronavirus 19, PCR Detected (NotDetected)
--- NOTE | 2022-05-04 14:50 | PC.NURSE ---
attempted to call pt with covid results. No answer
== END 2022-05-03 12:31 | disposition home or self-care (01) ==
PROVIDERS: Emergency Provider Nurse Practitioner; PCP Internal Medicine
DX: U07.1 COVID-19 (principal)
CPT/HCPCS: 87581; 87632; 87798; 99212; C9803; G0463; U0003; U0005

== ENCOUNTER → 2022-09-23 10:10 | Outpatient (CLI) | payer BC, SELFPAY ==
--- NOTE | 2022-09-23 10:16 | CT_ITS ---
FINAL REPORT TECHNIQUE: Axial CT images were performed from the lung bases through the pubic symphysis. Coronal reformats were submitted and reviewed. This study was performed with techniques to keep radiation doses as low as reasonably achievable (ALARA). Individualized dose reduction techniques using automated exposure control or adjustment of mA and/or kV according to the patient's size were employed. CLINICAL HISTORY: RUQ PAIN COMPARISON: April 2020 FINDINGS: Abdomen: There is mild scarring in the lung bases. There is fatty infiltration of the liver. A 22 mm left hepatic lobe cyst is stable. The gallbladder is present. The spleen and pancreas are unremarkable. There are no adrenal masses. There is no nephrolithiasis. There is no hydronephrosis. There is no free air. Pelvis: The appendix is unremarkable. There are no distal ureteral stones. The urinary bladder is unremarkable. There has been left hip arthroplasty. There is no free fluid or adenopathy. IMPRESSION: Fatty infiltrated liver. Stable hepatic cyst. No localized inflammatory reaction. Reviewed, Interpreted and Dictated by Fili Celis III, MD Transcribed by [place] Authenticated and [facility]
== END ==
PROVIDERS: PCP Internal Medicine; Visit Provider Internal Medicine
DX: R10.11 Right upper quadrant pain (principal)
CPT/HCPCS: 74176